=== PATIENT | male | born 1960 | race Caucasian/White ===

== ENCOUNTER 2016-12-11 01:44 | Emergency (ER) | payer MEDICARE ==
[2016-12-11 02:14] VITALS: BP 124/65; PULSE 98; TEMP 98.7; BMI 36.6
--- NOTE | 2016-12-11 02:24 | PDOC ---
History of Present Illness - General History Source: Patient Exam Limitations: No Limitations - History of Present Illness Initial Comments: 12/11/16 02:48 The patient is a 56 year old male with significant past medical history of hypertension, diabetes, asthma, kidney stones, multiple lithotripsies and cystoscopy/ureteroscopy with J-J stent (05/2016) who presents to the ED with 6 days of left-sided buttock pain. Patient reports 8 days ago he had a stent removed from his kidney. 2 days later, as he bent forward to feed his dog, he felt a sudden sharp and pulling sensation on his left lower side back/buttock region. His pain is worsen with movement. He is taking oxycodone for his left low back/buttock pain that was prescribed by his doctor for his stent removal. States he had some numbness/tingling earlier today lasting few seconds and resolved on its own. Denies any radiation of the pain. The patient denies fever, chills, cough, SOB, chest pain, and palpitations. The patient denies abdominal pain, nausea, vomiting, and diarrhea. Allergies: NKDA Social History: No alcohol, tobacco, or drug use reported. Past Surgical History: multiple lithotripsies, right rotator cuff repair, s/p cystoscopy/ureteroscopy with J-J stent (05/2016) PCP: Dr. Ken Rivera <Rosaura Hairston - Last Filed: 12/11/16 04:18> - General History Source: Patient <Saul Mays - Last Filed: 12/11/16 04:27> - General Chief Complaint: Pain Stated Complaint: LEFT HIP PAIN Time Seen by Provider: 12/11/16 02:11 Past History <Rosaura Hairston - Last Filed: 12/11/16 04:18> - Past Medical History Asthma: Yes Cancer: Yes Diabetes: Yes (niddm) Kidney Stones: Yes Suicide Attempt (Hx): No (denies) - Surgical History Orthopedic Surgery: Yes (Torn Right Rotator Cuff, tendon and muscle repair) - Immunization History Immunization Up to Date: Yes - Psycho/Social/Smoking Cessation Hx Anxiety: No Suicidal Ideation: No Smoking Status: No Smoking History: Never smoked Years of Tobacco Use: 0 Have you smoked in the past 12 months: No Number of Cigarettes Smoked Daily: 0 Cigars Per Day: 0 Information on smoking cessation initiated: No Hx Alcohol Use: No Drug/Substance Use Hx: No Substance Use Type: None Hx Substance Use Treatment: No <Saul Mays - Last Filed: 12/11/16 04:27> - Past Medical History Allergies/Adverse Reactions: Allergies Allergy/AdvReac Type Severity Reaction Status Date / Time No Known Allergies Allergy Verified 12/11/16 02:09 Home Medications: Ambulatory Orders Metformin HCl 500 mg PO DAILY 08/13/15 Albuterol 0.083% Nebulizer Nasreen [Ventolin 0.083% Nebulizer Soln -] 1 neb NEB Q4H PRN #10 vial 05/02/16 Albuterol Sulfate Inhaler - [Ventolin HFA Inhaler -] 1 - 2 inh PO PRN PRN #1 inhaler 05/02/16 Ibuprofen 800 mg PO TID #30 tablet 12/11/16 Oxycodone HCl/Acetaminophen [Percocet 5-325 mg Tablet] 1 - 2 tab PO Q6H #20 tablet MDD 4 12/11/16 Review of Systems - Review of Systems Able to Perform ROS?: Yes Comments:: 12/11/16 02:48 CONSTITUTIONAL: Absent: fever, no chills, no fatigue EYES: Absent: visual changes ENT: Absent: ear pain, no sore throat CARDIOVASCULAR: Absent: chest pain, no palpitations RESPIRATORY: Absent: cough, no SOB GI: Absent: abdominal pain, no nausea, no vomiting, no constipation, no diarrhea GENITOURINARY: Absent: dysuria, no frequency, no hematuria MUSCULOSKELETAL: +left low back/buttock pain Absent: no arthralgia, no myalgia SKIN: Absent: rash NEURO: Absent: headache <Rosaura Hairston - Last Filed: 12/11/16 04:18> *Physical Exam - Vital Signs Last Vital Signs Temp Pulse Resp BP Pulse Ox 98.7 F 98 H 20 124/65 97 12/11/16 02:09 12/11/16 02:09 12/11/16 02:09 12/11/16 02:09 12/11/16 02:09 - Physical Exam Comments: 12/11/16 02:48 GENERAL: Well-appearing, well-nourished. No apparent distress. HEENT: Normocephalic, atraumatic. PERRL, EOM intact. CARDIOVASCULAR: Normal S1, S2. Regular rate and rhythm. PULMONARY: Clear to auscultation bilaterally. ABDOMEN: Soft, non-distended, non-tender. EXTREMITIES: Normal ROM in all four extremities. No gross deformities. MUSCULOSKELETAL: Left sided inferior lateral back tenderness with radiation upon palpation. Increase pain with extension of lower extremities bilaterally. 5/5 muscle strength. No loss of sensation SKIN: Warm, dry. No rash NEUROLOGICAL: No focal neurological deficits. <Rosaura Hairston - Last Filed: 12/11/16 04:18> - Vital Signs Last Vital Signs Temp Pulse Resp BP Pulse Ox 98.7 F 98 H 20 124/65 97 12/11/16 02:09 12/11/16 02:09 12/11/16 02:09 12/11/16 02:09 12/11/16 02:09 <Saul Mays - Last Filed: 12/11/16 04:27> ED Treatment Course - RADIOLOGY Radiograph Interpretation: 12/11/16 04:18 EXAM: CT abdomen and pelvis without contrast Reviewed by Imaging prep person: FINDINGS: Negative for right or left urinary tract stone or obstruction. No bowel obstruction free air or free fluid. Normal appendix visualized. Negative for colitis or diverticulitis Liver cyst. Mildly fatty liver. Normal spleen. Normal pancreas. Normal gallbladder. Normal adrenal glands. No acute abnormalities are identified. EXAM: CT lumbar spine without contrast Reviewed by Imaging prep person: FINDINGS: Evaluation for herniated discs is quite limited due to image degradation from the large body habitus.. Diagnostic sensitivity for herniated disc is limited. MRI would be more sensitive. There is some disc bulging at L4-5. The lumbar vertebrae are normally aligned. No fracture or destructive bone lesion. No stenosis of the bony lumbar canal. - Medications Given in the ED: ED Medications Discontinued Medications Generic Name Dose Route Start Last Admin Trade Name Freq PRN Reason Stop Dose Admin Ketorolac Tromethamine 60 mg 12/11/16 02:36 12/11/16 02:35 Toradol Injection - IM 12/11/16 02:37 60 mg ONCE ONE Administration <Rosaura Hairston - Last Filed: 12/11/16 04:18> Medical Decision Making - Medical Decision Making 12/11/16 04:26 Dr. Mays: The scribe's documentation has been prepared under my direction and personally reviewed by me in its entirery. I confirm that the note above accurately reflects all work, treatment, procedures, and medical decision making performed by me. <Saul Mays - Last Filed: 12/11/16 04:27> *DC/Admit/Observation/Transfer - Attestations Scribe Attestion: 12/11/16 02:48 Documentation prepared by Rosaura Hairston, acting as biomedical equipment tech for Saul Mays MD. <Rosaura Hairston - Last Filed: 12/11/16 04:18> - Discharge Dispostion Admit: No <Saul Mays - Last Filed: 12/11/16 04:27> Diagnosis at time of Disposition: Musculoskeletal back pain - Discharge Dispostion Disposition: HOME Condition at time of disposition: Improved - Prescriptions Prescriptions: Ibuprofen 800 mg PO TID #30 tablet Oxycodone HCl/Acetaminophen [Percocet 5-325 mg Tablet] 1 - 2 tab PO Q6H #20 tablet MDD 4 - Referrals Referrals: Ken Rivera MD [Primary Care Provider] - - Patient Instructions Printed Discharge Instructions: DI for Musculoskeletal Pain Additional Instructions: take medication as directed. Follow up with your doctor if symptoms hav e become worse
[2016-12-11] MEDS ORDERED: KETOROLAC TROMETHAMINE 60 MG/2 ML VIAL IM ONE (02:36)
[2016-12-11] MEDS ORDERED: KETOROLAC TROMETHAMINE 60 MG/2 ML VIAL ONE (02:37)
[2016-12-11 03:29] LABS: URINE APPEARANCE CLEAR; URINE BILIRUBIN NEGATIVE (NEGATIVE); URINE BLOOD NEGATIVE (NEGATIVE); URINE COLOR LTYELLOW; URINE GLUCOSE (UA) NEGATIVE (NEGATIVE); URINE KETONE NEGATIVE (NEGATIVE); URINE LEUK ESTERASE NEGATIVE (NEGATIVE); URINE NITRITE NEGATIVE (NEGATIVE); URINE PROTEIN NEGATIVE (NEGATIVE); URINE UROBILINOGEN NEGATIVE E.U./dl (0.2-1.0)
== END 2016-12-11 04:45 | disposition home or self-care (01) ==
LOC: JER 01:44
PROC: 3E0233Z Introduction of Anti-inflammatory into Muscle, Percutaneous Approach (ICD-10-PCS; principal; 2016-12-11)
DX: M54.5 Low back pain (principal); I10 Essential (primary) hypertension; E11.9 Type 2 diabetes mellitus without complications; Z79.84 Long term (current) use of oral hypoglycemic drugs; Z87.442 Personal history of urinary calculi
CPT/HCPCS: 72131-TC; 74176; 81003; 87086; 99281-25

== ENCOUNTER 2017-10-30 22:35 | Inpatient (IN) | payer OTHER ==
--- NOTE | 2017-10-30 23:20 | PDOC ---
History of Present Illness - General Chief Complaint: Pain Stated Complaint: HIGH BP/NAUSEA Time Seen by Provider: 10/30/17 22:55 - History of Present Illness Initial Comments: 10/30/17 23:40 The patient is a 57 year old male with a history of hypertension, diabetes, asthma, kidney stones, multiple lithotripsies and cystoscopy/ureteroscopy with J -J stent (05/2016) who presents for evaluation of left flank pain and pain with urination. The patient reports a 3 day history of worsening sharp intermittent left flank pain with radiation into his left groin. He also notes burning on urination throughout this period of time prompting his presentation to the ED for evaluation. He denies fevers, chills, SOB, chest pain, nausea, abdominal pain, or changes with bowel movements. Past History - Past Medical History Allergies/Adverse Reactions: Allergies Allergy/AdvReac Type Severity Reaction Status Date / Time No Known Allergies Allergy Verified 10/30/17 22:42 Home Medications: Ambulatory Orders Metformin HCl 1,000 mg PO DAILY 08/13/15 Albuterol 0.083% Nebulizer Nasreen [Ventolin 0.083% Nebulizer Soln -] 1 neb NEB Q4H PRN #10 vial 05/02/16 Albuterol Sulfate Inhaler - [Ventolin HFA Inhaler -] 1 - 2 inh PO PRN PRN #1 inhaler 05/02/16 Fluticasone/Salmeterol [Advair 250-50 Diskus] 1 unit IN DAILY 12/11/16 Potassium Citrate [Potassium Citrate ER] 10 meq PO BID 12/11/16 Pregabalin [Lyrica] 100 mg PO BID 12/11/16 Tamsulosin HCl [Flomax] 0.4 mg PO DAILY 12/11/16 Albuterol 0.083% Nebulizer Nasreen [Ventolin 0.083% Nebulizer Soln -] 1 neb NEB Q4H #90 vial 07/10/17 Azithromycin 500 mg PO DAILY #1 tablet 07/10/17 Azithromycin [Zithromax 250mg Tablets -] 250 mg PO DAILY #4 tab 07/10/17 Ibuprofen 800 mg PO TID PRN 07/10/17 Prednisone [Prednisone 50 MG TABLETS] 50 mg PO DAILY #3 tablet 07/10/17 Asthma: Yes Cancer: Yes COPD: No Diabetes: Yes (niddm) Disorders: Yes (BPH) Kidney Stones: Yes - Surgical History Orthopedic Surgery: Yes (Torn Right Rotator Cuff, tendon and muscle repair) - Immunization History Immunization Up to Date: Yes - Suicide/Smoking/Psychosocial Hx Smoking Status: No Smoking History: Never smoked Years of Tobacco Use: 0 Have you smoked in the past 12 months: No Number of Cigarettes Smoked Daily: 0 Cigars Per Day: 0 Information on smoking cessation initiated: No Hx Alcohol Use: No Drug/Substance Use Hx: No Substance Use Type: None Hx Substance Use Treatment: No Review of Systems - Review of Systems Comments:: 10/30/17 23:42 Constitutional: No fevers, chills, fatigue, malaise HEENT: No Rhinorrhea, nasal congestion, visual changes Cardiovascular: No chest pain, syncope, palpitations, lightheadedness Respiratory: No Cough, SOB, Hemoptysis, Gastrointestinal: No Abdominal pain, Nausea, Vomiting, Constipation, Diarrhea, Melena Genitourinary: Dysuria, Flank pain No Frequency, Urgency, Hesitancy, Hematuria, Musculoskeletal: No Myalgia, arthralgia Skin: No rashes, itching, bruising, pallor Neurologic: No Headache, Dizziness, Numbness, Weakness, or Tingling Psychiatric: No Hallucinations. No SI or HI *Physical Exam - Vital Signs Last Vital Signs Temp Pulse Resp BP Pulse Ox 97.5 F L 106 H 20 129/87 97 10/30/17 22:43 10/30/17 22:43 10/30/17 22:43 10/30/17 22:43 10/30/17 22:43 - Physical Exam Comments: 10/30/17 23:42 General Appearance: Nourished. No Apparent Distress HEENT: No Pharyngeal Erythema, Tonsillar Exudate, Tonsillar Erythema Neck: No Cervical Lymphadenopathy Respiratory/Chest: Lungs Clear, Normal Breath Sounds. No Crackles, Rales, Rhonchi, Wheezing Cardiovascular: Regular Rhythm, Regular Rate. No Murmur, Gallops, Rubs Gastrointestinal/Abdominal: Normal Bowel Sounds, Soft. No Guarding, Rebound, Tenderness Musculoskeletal: Mild Left CVA Tenderness. No R CVA Tenderness Extremity: Normal Capillary Refill Integumentary: Normal Color, Dry, Warm Neurologic: Fully Oriented, Alert, Normal Mood/Affect, Normal Response, ED Treatment Course - LABORATORY CBC & Chemistry Diagram: 10/31/17 00:26 10/31/17 00:26 Medical Decision Making - Medical Decision Making 10/30/17 23:43 The patient is a 57 year old male with a history of hypertension, diabetes, asthma, kidney stones, multiple lithotripsies and cystoscopy/ureteroscopy with J -J stent (05/2016) who presents for evaluation of left flank pain and pain with urination. Differential includes but is not limited to: Kidney stones, UTI, pyelonephritis, infectious, metabolic derangement. Given the patient's recurrent kidney stones and history, it is possible his symptoms are due to a UTI or Kidney stone. We will obtain a cbc, cmp, ua, urine culture to evaluate further. We will continue to monitor and reassess. 10/31/17 04:45 CBC demonstrates a wbc elevation. CMP is unremarkable and UA demonstrates RBC and WBC with a positive leuk esterase. We obtain a spiral CT which demonstrated multiple non-obstruction stones as preliminarily read by the control operator flow coat radiologist. We believe he requires admission for further management given his UA is consistent with a UTI and his kidney stones. We will treat with rocephin here in the ED. We discussed the case with the hospitalist team who accepted the patient for admission. *DC/Admit/Observation/Transfer Diagnosis at time of Disposition: Renal calculus, left UTI (urinary tract infection) Qualifiers: Urinary tract infection type: site unspecified Hematuria presence: without hematuria Qualified Code(s): N39.0 - Urinary tract infection, site not specified - Discharge Dispostion Condition at time of disposition: Stable Admit: Yes - Referrals Referrals: Omar Rivera [Primary Care Provider] - - Patient Instructions - Post Discharge Activity
[2017-10-30] MEDS ORDERED: KETOROLAC TROMETHAMINE 30 MG/1 ML VIAL IVPUSH ONE (23:52)
[2017-10-31] MEDS ORDERED: KETOROLAC TROMETHAMINE 30 MG/1 ML VIAL ONE (00:11)
[2017-10-31 00:40] LABS: BASO % 0.7 % (0-2.0); EOS % 2.5 % (0-4.5); HEMATOCRIT 48.7 % (35.4-49); HEMOGLOBIN 16.2 GM/dL (11.7-16.9); LYMPH % 24.9 % (8-40); MCH 28.6 pg (25.7-33.7); MCHC 33.2 g/dl (32.0-35.9); MEAN CELL VOLUME 86.1 fl (80-96); MEAN PLT VOLUME 7.8 fl (7.5-11.1); MONO % 6.8 % (3.8-10.2); NEUT % 65.1 % (42.8-82.8); PLATELET COUNT 324 K/MM3 (134-434); RBC 5.65 M/mm3 (4.00-5.60); RDW 13.6 % (11.9-15.9); WHITE BLOOD COUNT 14.4 K/mm3 (4.0-10.0)
[2017-10-31 00:41] LABS: URINE APPEARANCE CLEAR; URINE BILIRUBIN NEGATIVE (NEGATIVE); URINE BLOOD 2+ (NEGATIVE); URINE COLOR LTYELLOW; URINE GLUCOSE (UA) 1+ (NEGATIVE); URINE KETONE NEGATIVE (NEGATIVE); URINE NITRITE NEGATIVE (NEGATIVE); URINE PROTEIN NEGATIVE (NEGATIVE); URINE UROBILINOGEN NEGATIVE mg/dL (0.2-1.0)
[2017-10-31 00:45] LABS: URINE LEUK ESTERASE 1+ (NEGATIVE)
[2017-10-31 00:47] LABS: EPI CELLS RARE /HPF (FEW); URINE MUCUS RARE
--- NOTE | 2017-10-31 00:51 | PDOC ---
Attending Attestation - Resident Resident Name: Vitaly Milton - ED Attending Attestation I have performed the following: I have examined & evaluated the patient, The case was reviewed & discussed with the resident, I agree w/resident's findings & plan - HPI HPI: 10/31/17 00:51 The patient is a 57 year old male, with a significant past medical history of asthma, diabetes, BPH, CKD, kidney stones(multiple Lithotripsy and cystoscopy/ ureteroscopy with J-J stent[05/2016]), who presents to the emergency department with left sided flank pain with radiation into his left groin for the past 3 days. The patient reports associated burning and pain with urination, but denies any hematuria, frequency, or urgency. He denies any recent fever or chills. He denies any nausea, vomiting, diarrhea, or constipation. He denies any recent travel or sick contacts. Allergies: NKDA Past Surgical History: Right rotator cuff repair. Social History: Non smoker. No ETOH or recreational drug use. PCP: Dr. Rivera - Medical Decision Making 10/31/17 00:51 Documentation prepared by Ruthie Da Silva, acting as medical technologist chief for Chantal Clarke MD. <Ruthie Da Silva - Last Filed: 10/31/17 00:51> - Physicial Exam PE: 11/01/17 06:01 Agree with resident exam - Medical Decision Making 10/31/17 03:39 Patient Name: RICHA PHILIPPE THIS IS A PRELIMINARY REPORT FROM [facility] [facility] DATE OF SERVICE: 2017-10-31 02:37:14 IMAGES: 471 EXAM: CT abdomen without contrast and CT pelvis without contrast HISTORY: 57-year-old male evaluate for hydronephrosis or pyelonephritis. COMPARISON: None. FINDINGS: Basilar atelectasis. Right anterior liver 3 cm hypodense lesion on axial image 27 most likely due to a benign liver cyst. Mild hepatomegaly. Lack of intravenous contrast limits this exam. Noncontrast evaluation gallbladder pancreas spleen adrenal glands appear unremarkable. Left kidney 1-2 mm nonobstructing nephrolithiasis. Right kidney and a cortical nonspecific 1.7 x 1.7 x 1.7 cm hyperdense renal cortical mass on axial image 60 coronal image 69 and sagittal image 31 most likely due to proteinaceous cyst and a mass cannot be excluded. Calcified granulomas in the prostate. Moderate bladder distention. Lack of oral contrast limits this exam. Noncontrast evaluation stomach small bowel and appendix appear unremarkable. Diverticulosis without diverticulitis. No free air. No free fluid. No abscess. Flowing thoracic osteophytes in lumbar osteophytes. Moderate degenerative disc disease and degenerative joint disease of the facets in the lower lumbar spine. Bone bridging across the sacroiliac joints. Chronic well -corticated fracture of the left anterolateral acetabular labrum. Subcutaneous adipose tissues incompletely included within the [id number]. IMPRESSION: Right kidney and a cortical nonspecific 1.7 cm hyperdense renal cortical mass most likely due to proteinaceous cyst and a mass cannot be excluded. If clinically indicated a followup outpatient MRI of the kidneys with contrast may be needed. Left kidney nonobstructing nephrolithiasis. Mild hepatomegaly with a right anterior liver 3 cm hypodense lesion most likely due to a benign liver cyst. Diverticulosis without diverticulitis. THIS DOCUMENT HAS BEEN ELECTRONICALLY SIGNED 11/01/17 05:59 Pt will be admitted for infected kidney stones. He will require IV abx. <Chantal Clarke - Last Filed: 11/01/17 06:01>
[2017-10-31 01:11] LABS: ALBUMIN 3.5 g/dl (3.4-5.0); ALK PHOS 102 U/L (45-117); ANION GAP 10 (8-16); BILIRUBIN,TOTAL 0.5 mg/dL (0.2-1.0); BLOOD UREA NITROGEN 14 mg/dL (7-18); CALCIUM 9.2 mg/dL (8.5-10.1); CHLORIDE 99 mmol/L (98-107); CO2 29 mmol/L (21-32); CREATININE 1.1 mg/dL (0.7-1.3); GLUCOSE,RANDOM 126 mg/dL (74-106); SGOT/AST 18 U/L (15-37); SGPT/ALT 46 U/L (12-78); SODIUM 138 mmol/L (136-145); TOT PROT 7.7 g/dl (6.4-8.2)
[2017-10-31] MEDS ORDERED: CEFTRIAXONE 1 GM in DEXTROSE 5%-WATER - 50 ML IVPB ONE (03:26)
[2017-10-31] MEDS ORDERED: CEFTRIAXONE 2 GM/100 ML BAG IVPB ONE (04:02)
[2017-10-31] MEDS ORDERED: ACETAMINOPHEN 325 MG TABLET (FP) PO PRN (05:30)
[2017-10-31] MEDS ORDERED: ALBUTEROL SO4 18 GM HFA INHALER IH PRN ×2 (05:38→12:58)
--- NOTE | 2017-10-31 05:43 | PN ---
Teaching Attending Note Name of Resident: Zee Barrera ATTENDING PHYSICIAN STATEMENT I saw and evaluated the patient. I reviewed the resident's note and discussed the case with the resident. I agree with the resident's findings and plan as documented. SUBJECTIVE: OBJECTIVE: ASSESSMENT AND PLAN: 57 y/o male patient with history of BPH s/p surgical intervention presented to the hospital for urinary hesitancy, burning sensation, flank pain, and hematuria this is s/p recent prostate procedure. patient has Left sided CVA tenderness, stated that he is having chills without any documented fever. he also stated that his urination frequency has increased more than before. plan patient is complicated UTI - admit to obs start the patient on ceftriaxone 500mg IV consult urology tamsulosin 0.4mg IVF hydration ultrasound of the kidney
[2017-10-31] MEDS: SODIUM CHLORIDE 1,000 ML IV SCH (05:45)
--- NOTE | 2017-10-31 05:47 | HP ---
CHIEF COMPLAINT: back pain PCP: Dr. Rivera HISTORY OF PRESENT ILLNESS: This is a 57 year old male with a past medical history of BPH; s/p J-J stent; s/ p recent prostate surgery (procedure unknown) at [facility], who presents with left sided back pain, dysuria, decreased urinary output, abdominal distention for the past two days. Sx was two weeks ago. He denies fever, chills, n, v, hematuria. ER course was notable for: (1)Leuckocytosis; tachycadia; (2)spiral CT; impression :Right kidney and a cortical nonspecific 1.7 cm hyperdense renal cortical mass most likely due to proteinaceous cyst and a mass cannot be excluded. If clinically indicated a followup outpatient MRI of the kidneys with contrast may be needed. Left kidney nonobstructing nephrolithiasis. Recent Travel: no PAST MEDICAL HISTORY: asthma, DM< bph PAST SURGICAL HISTORY: prostate, shoulder, cataracts Social History: Smoking:no Alcohol:no Drugs: no Family History: Allergies No Known Allergies Allergy (Verified 10/30/17 22:42) HOME MEDICATIONS: Home Medications Medication Instructions Recorded Metformin HCl 1,000 mg PO DAILY 08/13/15 Albuterol 0.083% Nebulizer Nasreen 1 neb NEB Q4H PRN #10 vial 05/02/16 [Ventolin 0.083% Nebulizer Soln -] Albuterol Sulfate Inhaler - 1 - 2 inh PO PRN PRN #1 inhaler 05/02/16 [Ventolin HFA Inhaler -] Fluticasone/Salmeterol [Advair 1 unit IN DAILY 12/11/16 250-50 Diskus] Potassium Citrate [Potassium 10 meq PO BID 12/11/16 Citrate ER] Pregabalin [Lyrica] 100 mg PO BID 12/11/16 Tamsulosin HCl [Flomax] 0.4 mg PO DAILY 12/11/16 Albuterol 0.083% Nebulizer Nasreen 1 neb NEB Q4H #90 vial 07/10/17 [Ventolin 0.083% Nebulizer Soln -] Azithromycin 500 mg PO DAILY #1 tablet 07/10/17 Azithromycin [Zithromax 250mg 250 mg PO DAILY #4 tab 07/10/17 Tablets -] Ibuprofen 800 mg PO TID PRN 07/10/17 Prednisone [Prednisone 50 MG 50 mg PO DAILY #3 tablet 07/10/17 TABLETS] REVIEW OF SYSTEMS as above PHYSICAL EXAMINATION Vital Signs - 24 hr 10/30/17 10/31/17 22:43 02:35 Temperature 97.5 F L 98.7 F Pulse Rate 106 H Pulse Rate [ 104 H Apical] Respiratory 20 18 Rate Blood Pressure 129/87 Blood Pressure 126/80 [Left Arm] O2 Sat by Pulse 97 99 Oximetry (%) GENERAL: Awake, alert, and fully oriented, in no acute distress. LUNGS: Breath sounds at bases, clear to auscultation bilaterally. No wheezes, and no crackles. No accessory muscle use. HEART: Regular rate and rhythm, normal S1 and S2 without murmur, rub or gallop. ABDOMEN: Soft, distended, tender to palpation LLQ, normoactive bowel sounds, no guarding, no rebound, no masses. No hepatomegaly or splenomegaly. MUSCULOSKELETAL: Normal range of motion at all joints. No bony deformities or tenderness. + left CVA tenderness. UPPER EXTREMITIES: 2+ pulses, warm, well-perfused. No cyanosis. No clubbing. No peripheral edema. LOWER EXTREMITIES: 2+ pulses, warm, well-perfused. No calf tenderness. No peripheral edema. NEUROLOGICAL: aaox3 PSYCHIATRIC: Cooperative. Good eye contact. Appropriate mood and affect. SKIN: Warm, dry, normal turgor, no rashes or lesions noted, normal capillary refill. Laboratory Results - last 24 hr 10/31/17 10/31/17 10/31/17 00:26 00:26 00:26 WBC 14.4 H D RBC 5.65 H Hgb 16.2 Hct 48.7 MCV 86.1 MCH 28.6 MCHC 33.2 RDW 13.6 Plt Count 324 MPV 7.8 Neutrophils % 65.1 Lymphocytes % 24.9 Monocytes % 6.8 Eosinophils % 2.5 Basophils % 0.7 Sodium 138 Potassium 4.0 Chloride 99 Carbon Dioxide 29 Anion Gap 10 BUN 14 D Creatinine 1.1 Creat Clearance w eGFR > 60 Random Glucose 126 H Calcium 9.2 Total Bilirubin 0.5 AST 18 ALT 46 D Alkaline Phosphatase 102 Total Protein 7.7 D Albumin 3.5 D Urine Color Ltyellow Urine Appearance Clear Urine pH 5.0 Ur Specific Mobile 1.012 Urine Protein Negative Urine Glucose (UA) 1+ H Urine Ketones Negative Urine Blood 2+ H Urine Nitrite Negative Urine Bilirubin Negative Urine Urobilinogen Negative Ur Leukocyte Esterase 1+ H Urine WBC (Auto) 12 Urine RBC (Auto) 59 Ur Epithelial Cells Rare Urine Mucus Rare ASSESSMENT/PLAN: This is a 57 year old male with w history of BPH s/p prostate sx; who presents with back pain, dysuria, +cva tenderness admitted for urinary tract infection. #UTI/prostatitis: -IVF-I/O IV antibiotics ceftriaxone -bladder scan for urinary retention -flomax -urology consult #asthma: controlled cont inhaled broncodilators #DM: insulin ss; bgm FEN: NS x1bag Electrolytes wnl Diet diabetic VTE : scds Disposition: obs Case discussed with attending Dr. Nelia Barrera [id number] Problem List - Problem (1) Renal calculus, left Code(s): N20.0 - CALCULUS OF KIDNEY (2) UTI (urinary tract infection) Code(s): N39.0 - URINARY TRACT INFECTION, SITE NOT SPECIFIED Qualifiers: Urinary tract infection type: site unspecified Hematuria presence: without hematuria Qualified Code(s): N39.0 - Urinary tract infection, site not specified (3) Abdominal pain Code(s): R10.9 - UNSPECIFIED ABDOMINAL PAIN Visit type - Emergency Visit Emergency Visit: Yes ED Registration Date: 10/31/17 Care time: The patient presented to the Emergency Department on the above date and was hospitalized for further evaluation of their emergent condition. - New Patient This patient is new to me today: Yes Date on this admission: 10/31/17 - Critical Care Critical Care patient: No Hospitalist Screening - Colonoscopy Questionnaire Colonoscopy Questionnaire: Colonoscopy Questionnaire - Patient: 50 - 75 years old and never had a screening colonoscopy: Yes History of colon or rectal polyps, or CA: No History of IBD, Crohn's disease or UC: No History of abdominal radiation therapy as a child: No - Relative: 1 with colon or rectal CA, or polyps at age 60 or younger: No Colon or rectal CA diagnosed at age 45 or younger: No Multiple relatives with colon or rectal CA: No - Outcome: Screening Result: Positive Screen
[2017-10-31] MEDS ORDERED: HEPARIN NA (PORCINE) 5,000 UNITS/ML 1ML VIAL SQ SCH (06:00)
[2017-10-31 07:18] VITALS: BMI 35.5
[2017-10-31] MEDS: INSULIN SLIDING SCALE (NOVOLOG) 1 VIAL SQ SCH ×4 (07:30→22:05)
[2017-10-31] MEDS ORDERED: KETOROLAC TROMETHAMINE 30 MG/1 ML VIAL IVPUSH ONE ×2 (08:42→21:41)
[2017-10-31] MEDS: TAMSULOSIN HCL 0.4 MG CAP.ER.24H (FP) PO SCH (08:48)
[2017-10-31] MEDS ORDERED: PATIENT'S OWN MEDICATION (NON-FORMULARY) (Potassium Citrate [Potassium Citrate Er] 10 MEQ) PO SCH (10:00)
[2017-10-31] MEDS ORDERED: PREGABALIN 100 MG CAPSULE PO SCH (10:00)
[2017-10-31] MEDS ORDERED: PREGABALIN 50 MG CAPSULE PO SCH (10:03)
[2017-10-31] MEDS: PREGABALIN 50 MG CAPSULE PO SCH ×2 (10:39→22:04)
[2017-10-31] MEDS: BUDESONIDE/FORMETEROL FUMARATE 80/4.5 mcg INHALER IH SCH ×2 (10:40→22:03)
--- NOTE | 2017-10-31 14:31 | HOSP ---
Subjective - Review of Symptoms Subjective: evaluated pt at bedside with present c/o urinary frequency and burning. states he has had this for 3 months since his procedure. Initially had hematuria which resolved. denies CP, SOB, fever, chills, N/V/C/D Current Medications Generic Name Dose Route Start Last Admin Trade Name Freq PRN Reason Stop Dose Admin Acetaminophen 650 mg 10/31/17 05:30 Tylenol - PO Q4H PRN BACK PAIN Albuterol Sulfate 1 amp 10/31/17 05:38 Ventolin 0.083% Nebulizer Soln - NEB Q4H PRN Wheezing Albuterol Sulfate 1 - 2 puff 10/31/17 12:58 Ventolin Hfa Inhaler - IH Q6H PRN ASTHMA Budesonide/Formoterol Fumarate 2 puff 10/31/17 10:00 10/31/17 10:40 Symbicort 80/4.5mcg - IH 2 puff BID ADILSON Administration Sodium Chloride 1,000 mls @ 125 mls/hr 10/31/17 05:30 10/31/17 05:45 Normal Saline - IV 125 mls/hr ASDIR ADILSON Administration CEFTRIAXONE 1 G/50 ML PREMIX 50 mls @ 100 mls/hr 10/31/17 22:00 Ceftriaxone 1 Gm-D5w Bag IVPB DAILY ADILSON Insulin Aspart 1 vial 10/31/17 07:00 10/31/17 12:01 Novolog Vial Sliding Scale - SQ 2 units ACHS ADILSON Administration Protocol Pregabalin 100 mg 10/31/17 10:45 10/31/17 10:39 Lyrica - PO 100 mg BID ADILSON Administration Tamsulosin HCl 0.4 mg 10/31/17 08:30 10/31/17 08:48 Flomax - PO 0.4 mg DAILY@0830 ADILSON Administration Last Vital Signs Temp Pulse Resp BP Pulse Ox 98.1 F 92 H 19 129/78 98 10/31/17 13:00 10/31/17 13:00 10/31/17 13:47 10/31/17 13:00 10/31/17 13:47 General NAD CV S1 S2 RRR no murmur/rub/gallop Lungs CTA B/L no wheezing/ralesr/honchi Abdomen soft NT/ND +L CVA tenderness Extremtieis no pedal edema CBCD WBC 14.4 K/mm3 (4.0-10.0) H D 10/31/17 00:26 RBC 5.65 M/mm3 (4.00-5.60) H 10/31/17 00: Hgb 16.2 GM/dL (11.7-16.9) 10/31/17: Hct 48.7 % (35.4-49) 10/31/17: MCV 86.1 fl (80-96) 10/31/17: MCHC 33.2 g/dl (32.0-35.9) 10/31/17: RDW 13.6 % (11.9-15.9) 10/31/17: Plt Count 324 K/MM3 (134-434) 10/31/17: MPV 7.8 fl (7.5-11.1) 10/31/17: CMP Sodium 138 mmol/L (136-145) 10/31/17: Potassium 4.0 mmol/L (3.5-5.1) 10/31/17: Chloride 99 mmol/L (98-107) 10/31/17: Carbon Dioxide 29 mmol/L (21-32) 10/31/17: Anion Gap 10 (8-16) 10/31/17: BUN 14 mg/dL (7-18) D 10/31/17 00: Creatinine 1.1 mg/dL (0.7-1.3) 10/31/17 00: Creat Clearance w eGFR > 60 (>60) 10/31/17: Calcium 9.2 mg/dL (8.5-10.1) 10/31/17 00: Total Bilirubin 0.5 mg/dL (0.2-1.0) 10/31/17: AST 18 U/L (15-37) 10/31/17: ALT 46 U/L (12-78) D 10/31/17 00: Alkaline Phosphatase 102 U/L (45-117) 10/31/17 00: Total Protein 7.7 g/dl (6.4-8.2) D 10/31/17 00: Albumin 3.5 g/dl (3.4-5.0) D 10/31/17 00:26 A/P 57yo M with PMH BPH s/p prostate procedure presenting with urinary frequency and dysuria 1. UTI- after prostate procedure. afebrile. CT done showing no pyelo or hydro. small multiple stones which pt states hes had for some time. cont ceftriaxone day 2. Consult urology. cont flomax/pain control. f/u Cx. Physical Examination Vital Signs: Vital Signs Temperature 98.1 F 10/31/17 13:00 Pulse Rate 92 H 10/31/17 13:00 Respiratory Rate 19 10/31/17 13:47 Blood Pressure 129/78 10/31/17 13:00 O2 Sat by Pulse Oximetry (%) 98 10/31/17 13:47 Labs: CBC, BMP 10/31/17 00:26 10/31/17 00:26
[2017-10-31] MEDS: ALBUTEROL SO4 0.083% IH SOL 2.5 MG/3 ML VIAL.NEB. NEB PRN (18:39)
[2017-10-31] MEDS ORDERED: PT OWN MED DRAWER 7, Y5N ONE (21:32)
[2017-10-31] MEDS ORDERED: INSULIN (NOVOLOG) ASPART 100 UNITS/ML 10ML VIAL ONE (21:39)
[2017-10-31] MEDS: CEFTRIAXONE 1 G/50 ML PREMIX 50 ML IVPB SCH (22:04)
[2017-11-01] MEDS: SODIUM CHLORIDE 1,000 ML IV SCH ×2 (03:38→12:00)
[2017-11-01] MEDS: INSULIN SLIDING SCALE (NOVOLOG) 1 VIAL SQ SCH ×4 (06:38→21:21)
[2017-11-01 06:41] LABS: BASO % 0.9 % (0-2.0); EOS % 2.4 % (0-4.5); HEMATOCRIT 44.3 % (35.4-49); HEMOGLOBIN 14.5 GM/dL (11.7-16.9); LYMPH % 19.5 % (8-40); MCH 28.7 pg (25.7-33.7); MCHC 32.8 g/dl (32.0-35.9); MEAN CELL VOLUME 87.4 fl (80-96); MEAN PLT VOLUME 8.5 fl (7.5-11.1); MONO % 5.1 % (3.8-10.2); NEUT % 72.1 % (42.8-82.8); PLATELET COUNT 223 K/MM3 (134-434); RBC 5.07 M/mm3 (4.00-5.60); RDW 13.8 % (11.9-15.9); WHITE BLOOD COUNT 11.9 K/mm3 (4.0-10.0)
[2017-11-01 07:06] LABS: ANION GAP 10 (8-16); BLOOD UREA NITROGEN 21 mg/dL (7-18); CALCIUM 8.4 mg/dL (8.5-10.1); CHLORIDE 106 mmol/L (98-107); CO2 25 mmol/L (21-32); GLUCOSE,RANDOM 148 mg/dL (74-106); POTASSIUM 4.1 mmol/L (3.5-5.1); SODIUM 141 mmol/L (136-145)
[2017-11-01] MEDS ORDERED: PT OWN MED DRAWER 7, Y5N ONE ×2 (09:07→21:04)
[2017-11-01] MEDS: TAMSULOSIN HCL 0.4 MG CAP.ER.24H (FP) PO SCH (09:19)
[2017-11-01] MEDS: BUDESONIDE/FORMETEROL FUMARATE 80/4.5 mcg INHALER IH SCH ×2 (09:20→21:18)
[2017-11-01] MEDS: PREGABALIN 50 MG CAPSULE PO SCH ×2 (09:20→21:18)
[2017-11-01] MEDS ORDERED: KETOROLAC TROMETHAMINE 30 MG/1 ML VIAL IVPUSH SCH (10:00)
[2017-11-01] MEDS: KETOROLAC TROMETHAMINE 30 MG/1 ML VIAL IVPUSH PRN ×2 (10:21→21:18)
[2017-11-01] MEDS ORDERED: morphine CARPU-JECT 4 MG/1 ML DISP.SYRIN IVPUSH ONE ×2 (12:06)
[2017-11-01] MEDS ORDERED: morphine SULFATE 4 MG/ML VIAL ONE (12:25)
--- NOTE | 2017-11-01 13:54 | PN ---
Physical Exam: SUBJECTIVE: Patient seen and examined at bedside. No overnight events. Continues to have left sided flank pain. He says he feels better than yesterday. Denies CP,TYSON,SOB, abdominal pain, N/V. OBJECTIVE: Vital Signs Period Temp Pulse Resp BP Sys/Sue Pulse Ox Last 24 Hr 96.9 F-98.7 F 79-95 18-20 121-143/76-80 96-96 GENERAL: AAOx3, mild distress ENT: moist mucous membranes. NECK: supple, no jvd LUNGS: CTAB, No wheezing or rales. HEART: RRR, NL S1S2, No M/G/R ABDOMEN: Soft, mild left sided abdominal pain, no hepato or splenomegally appreciated. EXTREMITIES: 2+ pulses, warm, well-perfused, no edema. NEUROLOGICAL:no focal deficits. Laboratory Results - last 24 hr 10/31/17 10/31/17 11/01/17 17:21 20:30 06:15 WBC 11.9 H RBC 5.07 Hgb 14.5 D Hct 44.3 MCV 87.4 MCH 28.7 MCHC 32.8 RDW 13.8 Plt Count 223 D MPV 8.5 Neutrophils % 72.1 Lymphocytes % 19.5 D Monocytes % 5.1 Eosinophils % 2.4 Basophils % 0.9 Sodium Potassium Chloride Carbon Dioxide Anion Gap BUN Creatinine POC Glucometer 159 169 Random Glucose Calcium 11/01/17 11/01/17 11/01/17 06:15 06:37 11:00 WBC RBC Hgb Hct MCV MCH MCHC RDW Plt Count MPV Neutrophils % Lymphocytes % Monocytes % Eosinophils % Basophils % Sodium 141 Potassium 4.1 Chloride 106 Carbon Dioxide 25 Anion Gap 10 BUN 21 H D Creatinine 1.0 POC Glucometer 134 219 Random Glucose 148 H Calcium 8.4 L Active Medications Generic Name Dose Route Start Last Admin Trade Name Freq PRN Reason Stop Dose Admin Acetaminophen 650 mg 10/31/17 05:30 Tylenol - PO Q4H PRN BACK PAIN Albuterol Sulfate 1 amp 10/31/17 05:38 10/31/17 18:39 Ventolin 0.083% Nebulizer Soln - NEB 1 amp Q4H PRN Administration Wheezing Albuterol Sulfate 1 - 2 puff 10/31/17 12:58 Ventolin Hfa Inhaler - IH Q6H PRN ASTHMA Budesonide/Formoterol Fumarate 2 puff 10/31/17 10:00 11/01/17 09:20 Symbicort 80/4.5mcg - IH 2 puff BID ADILSON Administration Sodium Chloride 1,000 mls @ 125 mls/hr 10/31/17 05:30 11/01/17 03:38 Normal Saline - IV 125 mls/hr ASDIR ADILSON Administration CEFTRIAXONE 1 G/50 ML PREMIX 50 mls @ 100 mls/hr 10/31/17 22:00 10/31/17 22: 04 Ceftriaxone 1 Gm-D5w Bag IVPB 100 mls/hr DAILY ADILSON Administration Insulin Aspart 1 vial 10/31/17 07:00 11/01/17 11:50 Novolog Vial Sliding Scale - SQ 3 units ACHS ADILSON Administration Protocol Ketorolac Tromethamine 30 mg 11/01/17 10:15 11/01/17 10:21 Toradol Injection - IVPUSH 11/06/17 09:59 30 mg Q8H-IV PRN Administration PAIN LEVEL 6-10 Pregabalin 100 mg 10/31/17 10:45 11/01/17 09:20 Lyrica - PO 100 mg BID ADILSON Administration Tamsulosin HCl 0.4 mg 10/31/17 08:30 11/01/17 09:19 Flomax - PO 0.4 mg DAILY@0830 ADILSON Administration ASSESSMENT/PLAN: 57yo M with PMH BPH s/p prostate procedure presenting with urinary frequency and dysuria admitted for acute UTI and renal stones Problem List - Problems (1) Renal calculus, left Assessment/Plan: multiple small stones which are chronic for him. * IVF with NS @ 125ml/hr * strain urine * Pain control with morphine 2mg IV push Q4h * He will be seen by Dr. Rivera tomorrow to determine need for further interventions. Code(s): N20.0 - CALCULUS OF KIDNEY (2) UTI (urinary tract infection) Assessment/Plan: Complicated UTI. * Continue Ceftriaxone 1gm IV daily. (3) Diabetes Assessment/Plan: Non-insulin dependent diabetes * ADA diet * BGM ACHS * ISS ACHS Visit type - Emergency Visit Emergency Visit: Yes ED Registration Date: 10/31/17 Care time: The patient presented to the Emergency Department on the above date and was hospitalized for further evaluation of their emergent condition. - New Patient This patient is new to me today: Yes Date on this admission: 11/01/17 - Critical Care Critical Care patient: No - Discharge Referral Referred to [facility] No
--- NOTE | 2017-11-01 14:46 | PN ---
Teaching Attending Note Name of Resident: Marcel Higgins ATTENDING PHYSICIAN STATEMENT I saw and evaluated the patient. I reviewed the resident's note and discussed the case with the resident. I agree with the resident's findings and plan as documented. SUBJECTIVE:c/o L flank pain radiating to the groin. not controlled with current pain medications. denies CP, SOB< fever, chills, N/V/C/D OBJECTIVE: Last Vital Signs Temp Pulse Resp BP Pulse Ox 97.6 F 80 13 145/87 96 11/01/17 13:35 11/01/17 13:35 11/01/17 13:35 11/01/17 13:35 11/01/17 09:00 General NAD Lungs CTA B/L no wheezing/ralesr/honchi Abdomen soft NT/ND +L CVA tenderness ASSESSMENT AND PLAN: 57yo M with PMH BPH s/p prostate procedure presenting with urinary frequency and dysuria 1. UTI- after prostate procedure. afebrile. pain not controlled. likely due to nephrolithasis. start morphine prn. cont ceftriaxone day 3. repeat Ucx Consult urology. cont flomax/pain control. f/u Cx. 2. KRISTINE- likely pre-renal. now resolved. on IVF. avoid nephrotoxic agents 3. DM- controlled. cont ISS, BGM 4. DVT ppx- EAM 5. Explained to pt possible d/c home tomorrow pending urology recommendations. verbalized understanding and agreement iwth plan
[2017-11-01] MEDS: CEFTRIAXONE 1 G/50 ML PREMIX 50 ML IVPB SCH (16:03)
[2017-11-01] MEDS: ALBUTEROL SO4 0.083% IH SOL 2.5 MG/3 ML VIAL.NEB. NEB PRN (21:20)
[2017-11-02] MEDS: SODIUM CHLORIDE 1,000 ML IV SCH ×4 (02:38→19:22)
[2017-11-02] MEDS: INSULIN SLIDING SCALE (NOVOLOG) 1 VIAL SQ SCH ×4 (06:11→21:41)
[2017-11-02 07:35] LABS: ANION GAP 6 (8-16); BLOOD UREA NITROGEN 15 mg/dL (7-18); CALCIUM 7.7 mg/dL (8.5-10.1); CHLORIDE 109 mmol/L (98-107); CO2 28 mmol/L (21-32); GLUCOSE,RANDOM 128 mg/dL (74-106); SODIUM 143 mmol/L (136-145)
[2017-11-02] MEDS: KETOROLAC TROMETHAMINE 30 MG/1 ML VIAL IVPUSH PRN (07:37)
[2017-11-02 08:03] LABS: BASO % 0.4 % (0-2.0); EOS % 2.9 % (0-4.5); HEMATOCRIT 42.5 % (35.4-49); HEMOGLOBIN 13.9 GM/dL (11.7-16.9); LYMPH % 20.7 % (8-40); MCH 28.8 pg (25.7-33.7); MCHC 32.7 g/dl (32.0-35.9); MEAN CELL VOLUME 88.2 fl (80-96); MEAN PLT VOLUME 7.9 fl (7.5-11.1); MONO % 5.5 % (3.8-10.2); NEUT % 70.5 % (42.8-82.8); PLATELET COUNT 225 K/MM3 (134-434); RBC 4.82 M/mm3 (4.00-5.60); RDW 13.9 % (11.9-15.9); WHITE BLOOD COUNT 10.5 K/mm3 (4.0-10.0)
[2017-11-02] MEDS ORDERED: PT OWN MED DRAWER 7, Y5N ONE ×3 (08:58→21:52)
[2017-11-02] MEDS: BUDESONIDE/FORMETEROL FUMARATE 80/4.5 mcg INHALER IH SCH ×2 (09:04→21:52)
[2017-11-02] MEDS: TAMSULOSIN HCL 0.4 MG CAP.ER.24H (FP) PO SCH (09:04)
[2017-11-02] MEDS: LISINOPRIL 5 MG TABLET (FP) PO SCH (09:04)
[2017-11-02] MEDS: CEFTRIAXONE 1 G/50 ML PREMIX 50 ML IVPB SCH (09:04)
[2017-11-02] MEDS: PREGABALIN 50 MG CAPSULE PO SCH ×2 (09:04→21:49)
[2017-11-02] MEDS ORDERED: morphine SULFATE 4 MG/ML VIAL IVPUSH ONE (11:03)
--- NOTE | 2017-11-02 13:06 | PN ---
Teaching Attending Note Name of Resident: Av Allred ATTENDING PHYSICIAN STATEMENT I saw and evaluated the patient. I reviewed the resident's note and discussed the case with the resident. I agree with the resident's findings and plan as documented. SUBJECTIVE:c/o severe L flank pain. worse this AM radiating to groin. denies CP , SOB, fever, chills, N/V/C/D OBJECTIVE: Last Vital Signs Temp Pulse Resp BP Pulse Ox 98.4 F 73 18 120/76 98 11/02/17 10:11/02/17 10:11/02/17 10:11/02/17 10:11/02/17 12:00 General NAD Lungs CTA B/L no wheezing/ralesr/honchi Abdomen soft NT/ND +L CVA tenderness ASSESSMENT AND PLAN: 57yo M with PMH BPH s/p prostate procedure presenting with urinary frequency and dysuria 1. UTI- after prostate procedure. afebrile. states pain is controlled with morphine. possible stone is obstructing although not seen on initial imaging. call urology to come nad evaluate. cont ceftriaxone day 4. repeat Ucx negative. Consult urology. cont flomax/pain control. 2. KRISTINE- likely pre-renal. now resolved. on IVF. avoid nephrotoxic agents 3. DM- controlled. cont ISS, BGM 4. HTN- above goal. may be due to pain however above goal in diabetic. will start lisinopril 5. DVT ppx- EAM
[2017-11-02] MEDS ORDERED: MORPHINE SULFATE 10 MG/1 ML *VIAL IVPUSH PRN (13:10)
[2017-11-02] MEDS ORDERED: ACETAMINOPHEN 325 MG TABLET (FP) PO PRN (13:13)
[2017-11-02] MEDS ORDERED: KETOROLAC TROMETHAMINE 30 MG/1 ML VIAL IVPUSH PRN (13:13)
--- NOTE | 2017-11-02 13:59 | PN ---
Physical Exam: SUBJECTIVE: Patient seen and examined No acute events overnight. Pt reports decreased dysuria, but his left back pain is still severe. He denies n/v/d/c, abdominal pain. OBJECTIVE: Vital Signs Period Temp Pulse Resp BP Sys/Sue Pulse Ox Last 24 Hr 97.4 F-98.4 F 73-80 17-18 120-143/76-81 96-98 GENERAL: The patient is awake, alert, and fully oriented, in mild distress. HEENT: NC, AT LUNGS: Breath sounds equal, clear to auscultation bilaterally, no wheezes, no crackles, no accessory muscle use. HEART: Regular rate and rhythm, S1, S2 without murmur, rub or gallop. ABDOMEN: Soft, nontender, nondistended, normoactive bowel sounds, no guarding, no rebound, no hepatosplenomegaly, no masses. Back: + left CVA tenderness EXTREMITIES: 2+ pulses, warm, well-perfused, no edema. NEUROLOGICAL: Cranial nerves II through XII grossly intact. Normal speech, gait not observed. Laboratory Results - last 24 hr 11/01/17 11/01/17 11/02/17 16:32 20:15 06:04 WBC RBC Hgb Hct MCV MCH MCHC RDW Plt Count MPV Neutrophils % Lymphocytes % Monocytes % Eosinophils % Basophils % Sodium Potassium Chloride Carbon Dioxide Anion Gap BUN Creatinine POC Glucometer 150 174 132 Random Glucose Calcium 11/02/17 11/02/17 11/02/17 06:06 06:48 11:17 WBC 10.5 H RBC 4.82 Hgb 13.9 Hct 42.5 MCV 88.2 MCH 28.8 MCHC 32.7 RDW 13.9 Plt Count 225 MPV 7.9 Neutrophils % 70.5 Lymphocytes % 20.7 Monocytes % 5.5 Eosinophils % 2.9 Basophils % 0.4 Sodium 143 Potassium 4.0 Chloride 109 H Carbon Dioxide 28 Anion Gap 6 L BUN 15 D Creatinine 1.0 POC Glucometer 243 Random Glucose 128 H Calcium 7.7 L Active Medications Generic Name Dose Route Start Last Admin Trade Name Freq PRN Reason Stop Dose Admin Acetaminophen 650 mg 11/02/17 13:13 Tylenol - PO Q4H PRN pain 1-3 Albuterol Sulfate 1 amp 10/31/17 05:38 11/01/17 21:20 Ventolin 0.083% Nebulizer Soln - NEB 1 amp Q4H PRN Administration Wheezing Albuterol Sulfate 1 - 2 puff 10/31/17 12:58 Ventolin Hfa Inhaler - IH Q6H PRN ASTHMA Budesonide/Formoterol Fumarate 2 puff 10/31/17 10:00 11/02/17 09:04 Symbicort 80/4.5mcg - IH 2 puff BID ADILSON Administration Sodium Chloride 1,000 mls @ 125 mls/hr 10/31/17 05:30 11/02/17 11:19 Normal Saline - IV 125 mls/hr ASDIR ADILSON Administration CEFTRIAXONE 1 G/50 ML PREMIX 50 mls @ 100 mls/hr 10/31/17 22:00 11/02/17 09: 04 Ceftriaxone 1 Gm-D5w Bag IVPB 100 mls/hr DAILY ADILSON Administration Insulin Aspart 1 vial 10/31/17 07:00 11/02/17 11:50 Novolog Vial Sliding Scale - SQ 3 units ACHS ADILSON Administration Protocol Ketorolac Tromethamine 30 mg 11/02/17 13:13 Toradol Injection - IVPUSH 11/06/17 09:59 Q8H-IV PRN PAIN LEVEL 4 - 6 Lisinopril 5 mg 11/02/17 10:00 11/02/17 09:04 Prinivil PO 5 mg DAILY ADILSON Administration Morphine Sulfate 2 mg 11/02/17 13:10 Morphine Injection - IVPUSH Q6H PRN PAIN LEVEL 7 - 10 Pregabalin 100 mg 10/31/17 10:45 11/02/17 09:04 Lyrica - PO 100 mg BID ADILSON Administration Tamsulosin HCl 0.4 mg 10/31/17 08:30 11/02/17 09:04 Flomax - PO 0.4 mg DAILY@0830 ADILSON Administration ASSESSMENT/PLAN: 57M with hx of BPH s/p prostate procedure presenting with urinary frequency, dysuria, and left flank pain #UTI -2/2 BPH vs. renal stone -leukocytosis of 10.5, down from 14.4. afebrile -continue ceftriaxone (day 4) -Bcx: nothing x 48h -Ucx: negative, final -continue flomax and pain control with APAP, toradol, and morphine PRN -IVF -urology on board, f/u recs #KRISTINE -resolved -IVF -avoid nephrotoxic agents #DM - controlled -cont ISS, BGM #HTN - continue lisinopril -monitor BP #FEN/ppx -NS @ 125 -electrolytes wnl -diabetic diet -GI ppx not indicated -EAM Case discussed with attending, Dr. Lopes. -Av Allred MD PGY1 Visit type - Emergency Visit Emergency Visit: Yes ED Registration Date: 10/31/17 Care time: The patient presented to the Emergency Department on the above date and was hospitalized for further evaluation of their emergent condition. - New Patient This patient is new to me today: Yes Date on this admission: 11/02/17 - Critical Care Critical Care patient: No
[2017-11-03 07:04] LABS: ANION GAP 6 (8-16); BASO % 0.5 % (0-2.0); BLOOD UREA NITROGEN 14 mg/dL (7-18); CALCIUM 7.9 mg/dL (8.5-10.1); CHLORIDE 108 mmol/L (98-107); CO2 27 mmol/L (21-32); EOS % 3.4 % (0-4.5); GLUCOSE,RANDOM 107 mg/dL (74-106); HEMATOCRIT 41.2 % (35.4-49); HEMOGLOBIN 13.6 GM/dL (11.7-16.9); LYMPH % 20.1 % (8-40); MCH 28.9 pg (25.7-33.7); MEAN CELL VOLUME 87.6 fl (80-96); MEAN PLT VOLUME 7.9 fl (7.5-11.1); MONO % 5.4 % (3.8-10.2); NEUT % 70.6 % (42.8-82.8); PLATELET COUNT 226 K/MM3 (134-434); POTASSIUM 4.1 mmol/L (3.5-5.1); RDW 13.6 % (11.9-15.9); SODIUM 141 mmol/L (136-145); WHITE BLOOD COUNT 11.9 K/mm3 (4.0-10.0)
[2017-11-03] MEDS: INSULIN SLIDING SCALE (NOVOLOG) 1 VIAL SQ SCH ×4 (07:09→21:27)
[2017-11-03] MEDS ORDERED: KETOROLAC TROMETHAMINE 15 MG/ML VIAL IVPUSH PRN (08:03)
--- NOTE | 2017-11-03 08:03 | PN ---
<Av Allred - Last Filed: 11/03/17 14:10> Physical Exam: SUBJECTIVE: Patient seen and examined No acute events overnight. Pt states that back pain is slowly decreasing, today is 7/10. States that it is radiating from left flank around left side to left abdomen. He denies dysuria and nausea. OBJECTIVE: Vital Signs Period Temp Pulse Resp BP Sys/Sue Pulse Ox Last 24 Hr 97.6 F-98.7 F 66-85 18-18 108-156/61-79 98-98 GENERAL: The patient is awake, alert, and fully oriented, in no distress. HEENT: NC, AT LUNGS: Breath sounds equal, clear to auscultation bilaterally, no wheezes, no crackles, no accessory muscle use. HEART: Regular rate and rhythm, S1, S2 without murmur, rub or gallop. ABDOMEN: soft, obese, minimally tender over LUQ and LLQ Back: decreased left CVA tenderness EXTREMITIES: 2+ pulses, warm, well-perfused, no edema. NEUROLOGICAL: Cranial nerves II through XII grossly intact. Normal speech, gait not observed. Laboratory Results - last 24 hr 11/02/17 11/02/17 11/02/17 06:06 11:17 16:08 WBC 10.5 H RBC 4.82 Hgb 13.9 Hct 42.5 MCV 88.2 MCH 28.8 MCHC 32.7 RDW 13.9 Plt Count 225 MPV 7.9 Neutrophils % 70.5 Lymphocytes % 20.7 Monocytes % 5.5 Eosinophils % 2.9 Basophils % 0.4 Sodium Potassium Chloride Carbon Dioxide Anion Gap BUN Creatinine POC Glucometer 243 154 Random Glucose Calcium 11/02/17 11/03/17 11/03/17 21:26 05:35 05:35 WBC 11.9 H RBC 4.70 Hgb 13.6 Hct 41.2 MCV 87.6 MCH 28.9 MCHC 33.0 RDW 13.6 Plt Count 226 MPV 7.9 Neutrophils % 70.6 Lymphocytes % 20.1 Monocytes % 5.4 Eosinophils % 3.4 Basophils % 0.5 Sodium 141 Potassium 4.1 Chloride 108 H Carbon Dioxide 27 Anion Gap 6 L BUN 14 Creatinine 1.0 POC Glucometer 139 Random Glucose 107 H Calcium 7.9 L 11/03/17 07:08 WBC RBC Hgb Hct MCV MCH MCHC RDW Plt Count MPV Neutrophils % Lymphocytes % Monocytes % Eosinophils % Basophils % Sodium Potassium Chloride Carbon Dioxide Anion Gap BUN Creatinine POC Glucometer 109 Random Glucose Calcium Active Medications Generic Name Dose Route Start Last Admin Trade Name Natalia PRN Reason Stop Dose Admin Acetaminophen 650 mg 11/02/17 13:13 11/03/17 02:29 Tylenol - PO 650 mg Q4H PRN Administration pain 1-3 Albuterol Sulfate 1 amp 10/31/17 05:38 11/01/17 21:20 Ventolin 0.083% Nebulizer Soln - NEB 1 amp Q4H PRN Administration Wheezing Albuterol Sulfate 2 puff 10/31/17 12:58 Ventolin Hfa Inhaler - IH Q6H PRN ASTHMA Budesonide/Formoterol Fumarate 2 puff 10/31/17 10:00 11/02/17 21:52 Symbicort 80/4.5mcg - IH 2 puff BID ADILSON Administration Sodium Chloride 1,000 mls @ 125 mls/hr 10/31/17 05:30 11/02/17 19:22 Normal Saline - IV 125 mls/hr ASDIR ADILSON Administration CEFTRIAXONE 1 G/50 ML PREMIX 50 mls @ 100 mls/hr 10/31/17 22:00 11/02/17 09: 04 Ceftriaxone 1 Gm-D5w Bag IVPB 100 mls/hr DAILY ADILSON Administration Insulin Aspart 1 vial 10/31/17 07:00 11/03/17 07:09 Novolog Vial Sliding Scale - SQ Not Given ACHS ADILSON Protocol Ketorolac Tromethamine 30 mg 11/02/17 13:13 Toradol Injection - IVPUSH 11/06/17 09:59 Q8H-IV PRN PAIN LEVEL 4 - 6 Lisinopril 5 mg 11/02/17 10:00 11/02/17 09:04 Prinivil PO 5 mg DAILY ADILSON Administration Morphine Sulfate 2 mg 11/02/17 13:10 11/02/17 21:43 Morphine Injection - IVPUSH 2 mg Q6H PRN Administration PAIN LEVEL 7 - 10 Pregabalin 100 mg 10/31/17 10:45 11/02/17 21:49 Lyrica - PO 100 mg BID ADILSON Administration Tamsulosin HCl 0.4 mg 10/31/17 08:30 11/02/17 09:04 Flomax - PO 0.4 mg DAILY@0830 [facility] Administration ASSESSMENT/PLAN: 57M with hx of BPH s/p prostate procedure presenting with urinary frequency, dysuria, and left flank pain. #UTI -2/2 BPH vs. renal stone -leukocytosis of 11.9, up from 10.5. afebrile -continue ceftriaxone (day 5) -Bcx: nothing x 48h -Ucx: negative, final -continue flomax and pain control with APAP and toradol PRN -IVF -urology on board, f/u recs -renal US (11/02): normal, no hydro #KRISTINE -resolved -IVF -avoid nephrotoxic agents #DM - controlled -cont ISS, BGM #HTN - continue lisinopril -monitor BP #FEN/ppx -NS @ 125 -electrolytes wnl -diabetic diet -GI ppx not indicated -EAM Case discussed with attending, Dr. Woodruff. -Av Allred MD PGY1 Visit type - Emergency Visit Emergency Visit: Yes ED Registration Date: 10/31/17 Care time: The patient presented to the Emergency Department on the above date and was hospitalized for further evaluation of their emergent condition. - New Patient This patient is new to me today: No - Critical Care Critical Care patient: No <Trena Woodruff - Last Filed: 11/03/17 15:06> Physical Exam: Patient seen and examined at 12:[address] Allred. Agree with above findings, plan of care with exceptions mentioned below. Patient still with left flank pain though improved urinary symptoms. no fevers/chills, taking PO well O/E: noted sleeping comfortably when in room Abdomen: left CVA tenderness, abdomen otherwise, soft, obese, NT throughout, positive bowel sounds chest: CTAB, no rales or wheezing Plan: -Sepsis due to complicated UTI -Nephrolithiasis -KRISTINE, resolved -NIDDM -HTN -Asthma Ceftriaxone day 5, urine/blood cultures neg so far. patient still symptomatic with rising WBC. Repeat u.a. Readdress with Urology Dr. Rivera and follow up additional recs. Retrieve info on prior urological procedure at [facility], urine cultures and antibiotic treatment. d/c morphine for now. Acetaminophen/toradol prn. ISS, diabetic diet . Reconcile home anti-hypertensives and resume accordingly DVTPPx dispo pending urology input. Plan discussed with patient in detail and all questions answered.
[2017-11-03] MEDS: CEFTRIAXONE 1 G/50 ML PREMIX 50 ML IVPB SCH (10:17)
[2017-11-03] MEDS: PREGABALIN 50 MG CAPSULE PO SCH ×2 (10:17→21:24)
[2017-11-03] MEDS: LISINOPRIL 5 MG TABLET (FP) PO SCH (10:17)
[2017-11-03] MEDS: TAMSULOSIN HCL 0.4 MG CAP.ER.24H (FP) PO SCH (10:17)
[2017-11-03] MEDS ORDERED: PT OWN MED DRAWER 7, Y5N ONE (10:26)
[2017-11-03] MEDS: BUDESONIDE/FORMETEROL FUMARATE 80/4.5 mcg INHALER IH SCH ×2 (10:27→21:26)
[2017-11-03] MEDS: ACETAMINOPHEN 325 MG TABLET (FP) PO PRN (11:35)
[2017-11-03] MEDS: SODIUM CHLORIDE 1,000 ML IV SCH (14:00)
--- NOTE | 2017-11-03 16:57 | CON.GU ---
Consult Consult Specialty:: Urology Reason for Consultation:: Left Renal Colic - History of Present Illness Chief Complaint: Pain in the left flank area - History Source History Provided By: Patient Limitations to Obtaining History: No Limitations - Past Medical History Cardio/Vascular: Yes: HTN Pulmonary: Yes: Asthma, COPD Renal/: Yes: Renal Calculi (S/P MULTIPLE LITHOTRIPSIES) Endocrine: Yes: Diabetes Mellitus - Alcohol/Substance Use Hx Alcohol Use: No History of Substance Use: reports: None - Smoking History Smoking history: Never smoked Have you smoked in the past 12 months: No Aproximately how many cigarettes per day: 0 - Social History ADL: Independent Occupation: Retired Home Medications - Allergies Allergies/Adverse Reactions: Allergies Allergy/AdvReac Type Severity Reaction Status Date / Time No Known Allergies Allergy Verified 10/30/17 22:42 - Home Medications Home Medications: Ambulatory Orders Metformin HCl 1,000 mg PO DAILY 08/13/15 Albuterol 0.083% Nebulizer Nasreen [Ventolin 0.083% Nebulizer Soln -] 1 neb NEB Q4H PRN #10 vial 05/02/16 Albuterol Sulfate Inhaler - [Ventolin HFA Inhaler -] 1 - 2 inh PO PRN PRN #1 inhaler 05/02/16 Fluticasone/Salmeterol [Advair 250-50 Diskus] 1 unit IN DAILY 12/11/16 Pregabalin [Lyrica] 100 mg PO BID 12/11/16 Tamsulosin HCl [Flomax] 0.4 mg PO DAILY 12/11/16 Albuterol 0.083% Nebulizer Nasreen [Ventolin 0.083% Nebulizer Soln -] 1 neb NEB Q4H #90 vial 07/10/17 Metoprolol Tartrate [Lopressor] 50 mg PO BID 11/03/17 Physical Exam- Vital Signs: Vital Signs Temperature 98.3 F 11/03/17 14:00 Pulse Rate 78 11/03/17 14:00 Respiratory Rate 18 11/03/17 14:00 Blood Pressure 115/64 11/03/17 14:00 O2 Sat by Pulse Oximetry (%) 97 11/03/17 10:00 Labs: CBC, BMP 11/03/17 05:35 11/03/17 05:35 Assessment/Plan 57 year Old male admitted to the hospital with left renal colic. Pt gives hx of renal calculous disease. Has had ESWLs before. He was supposed to have another ESWL scheduled but before that he was admitted for pain. According to the pat. he also developed UTI. He claims pain to be present still. Ct Scan of the abdomen and renal ultrasound reviwed. Few punctate calculi noted in the left collecting system. No hydronephrosis noted. This is confirmed with renal sonogram. The situation discussed with the pt. Advised the patient to be discharged . He will get in touch with my office for further treatment. Pt is in agreement. Plan: Discharge the patient with antibiotics and some form of pain management. he will contact the office tomorrow for further treatment. Thank you, Will follow as necessary
[2017-11-03 17:09] LABS: URINE APPEARANCE CLEAR; URINE BILIRUBIN NEGATIVE (NEGATIVE); URINE BLOOD 1+ (NEGATIVE); URINE COLOR COLORLESS; URINE GLUCOSE (UA) 1+ (NEGATIVE); URINE KETONE NEGATIVE (NEGATIVE); URINE LEUK ESTERASE TRACE (NEGATIVE); URINE NITRITE NEGATIVE (NEGATIVE); URINE PROTEIN NEGATIVE (NEGATIVE); URINE UROBILINOGEN NEGATIVE mg/dL (0.2-1.0)
[2017-11-03] MEDS: METOPROLOL TARTRATE 50 MG TABLET (FP) PO SCH (21:25)
[2017-11-03] MEDS ORDERED: METOPROLOL TARTRATE 50 MG TABLET (FP) PO SCH (22:00)
[2017-11-04] MEDS: ACETAMINOPHEN 325 MG TABLET (FP) PO PRN (05:27)
[2017-11-04] MEDS: SODIUM CHLORIDE 1,000 ML IV SCH (05:27)
[2017-11-04] MEDS: INSULIN SLIDING SCALE (NOVOLOG) 1 VIAL SQ SCH (06:52)
[2017-11-04 07:31] LABS: BASO % 0.4 % (0-2.0); EOS % 2.6 % (0-4.5); HEMATOCRIT 44.2 % (35.4-49); HEMOGLOBIN 14.4 GM/dL (11.7-16.9); LYMPH % 17.2 % (8-40); MCH 28.6 pg (25.7-33.7); MCHC 32.5 g/dl (32.0-35.9); MEAN PLT VOLUME 8.2 fl (7.5-11.1); MONO % 6.3 % (3.8-10.2); NEUT % 73.5 % (42.8-82.8); PLATELET COUNT 239 K/MM3 (134-434); RBC 5.02 M/mm3 (4.00-5.60); RDW 13.9 % (11.9-15.9); WHITE BLOOD COUNT 12.1 K/mm3 (4.0-10.0)
[2017-11-04 07:47] LABS: ANION GAP 9 (8-16); BLOOD UREA NITROGEN 12 mg/dL (7-18); CALCIUM 8.5 mg/dL (8.5-10.1); CHLORIDE 105 mmol/L (98-107); CO2 27 mmol/L (21-32); GLUCOSE,RANDOM 153 mg/dL (74-106); POTASSIUM 4.4 mmol/L (3.5-5.1); SODIUM 141 mmol/L (136-145)
--- NOTE | 2017-11-04 08:39 | DS ---
Physical Exam: SUBJECTIVE: Patient seen and examined No acute events overnight. This am, pt reports that left flank pain is down to a 4/10. He denies nausea, emesis, chest pain, SOB, abdominal pain, diarrhea, constipation, and dysuria. OBJECTIVE: Vital Signs Period Temp Pulse Resp BP Sys/Sue Pulse Ox Last 24 Hr 97.0 F-98.3 F 71-91 18-20 115-144/64-93 97-98 PHYSICAL EXAM GENERAL: The patient is awake, alert, and fully oriented, in no distress. HEENT: NC, AT LUNGS: Breath sounds equal, clear to auscultation bilaterally, no wheezes, no crackles, no accessory muscle use. HEART: Regular rate and rhythm, S1, S2 without murmur, rub or gallop. ABDOMEN: soft, obese, NT Back: No left CVA tenderness EXTREMITIES: 2+ pulses, warm, well-perfused, no edema. NEUROLOGICAL: Cranial nerves II through XII grossly intact. Normal speech, gait not observed. LABS Laboratory Results - last 24 hr 11/03/17 11/03/17 11/03/17 11:34 15:25 16:16 WBC RBC Hgb Hct MCV MCH MCHC RDW Plt Count MPV Neutrophils % Lymphocytes % Monocytes % Eosinophils % Basophils % Sodium Potassium Chloride Carbon Dioxide Anion Gap BUN Creatinine POC Glucometer 138 183 Random Glucose Calcium Urine Color Colorless Urine Appearance Clear Urine pH 7.0 D Ur Specific [place] 1.008 Urine Protein Negative Urine Glucose (UA) 1+ H Urine Ketones Negative Urine Blood 1+ H Urine Nitrite Negative Urine Bilirubin Negative Urine Urobilinogen Negative Ur Leukocyte Esterase Trace Urine WBC (Auto) 3 Urine RBC (Auto) 1 11/03/17 11/04/17 11/04/17 21:24 05:26 07:12 WBC 12.1 H RBC 5.02 Hgb 14.4 Hct 44.2 MCV 88.0 MCH 28.6 MCHC 32.5 RDW 13.9 Plt Count 239 MPV 8.2 Neutrophils % 73.5 Lymphocytes % 17.2 Monocytes % 6.3 Eosinophils % 2.6 Basophils % 0.4 Sodium Potassium Chloride Carbon Dioxide Anion Gap BUN Creatinine POC Glucometer 186 166 Random Glucose Calcium Urine Color Urine Appearance Urine pH Ur Specific [place] Urine Protein Urine Glucose (UA) Urine Ketones Urine Blood Urine Nitrite Urine Bilirubin Urine Urobilinogen Ur Leukocyte Esterase Urine WBC (Auto) Urine RBC (Auto) 11/04/17 07:12 WBC RBC Hgb Hct MCV MCH MCHC RDW Plt Count MPV Neutrophils % Lymphocytes % Monocytes % Eosinophils % Basophils % Sodium 141 Potassium 4.4 Chloride 105 Carbon Dioxide 27 Anion Gap 9 BUN 12 Creatinine 1.0 POC Glucometer Random Glucose 153 H D Calcium 8.5 Urine Color Urine Appearance Urine pH Ur Specific [place] Urine Protein Urine Glucose (UA) Urine Ketones Urine Blood Urine Nitrite Urine Bilirubin Urine Urobilinogen Ur Leukocyte Esterase Urine WBC (Auto) Urine RBC (Auto) Microbiology 10/31/17 08:00 Blood - Peripheral Venous Blood Culture - Preliminary NO GROWTH OBTAINED AFTER 96 HOURS, INCUBATION TO CONTINUE FOR 1 DAYS. 10/31/17 08:05 Blood - Peripheral Venous Blood Culture - Preliminary NO GROWTH OBTAINED AFTER 96 HOURS, INCUBATION TO CONTINUE FOR 1 DAYS. 11/01/17 11:52 Urine - Urine Clean Catch Urine Culture - Final NO GROWTH OBTAINED 10/31/17 00:26 Urine - Urine Clean Catch Urine Culture - Final Contaminated: Please Repeat CT abdomen/pelvis: right renal dense cyst, grossly unchanged. Non-obstructing left renal calculi. HOSPITAL COURSE: Date of Admission:10/31/17 Date of Discharge: 11/04/17 57M with hx of BPH s/p prostate procedure, nephrolithiasis s/p multiple ESWL procedures, asthma, and DM presenting with urinary frequency, dysuria, and left flank pain, found to have sepsis, admitted for sepsis 2/2 possible UTI. UA only showed 1+ LE and 12 wbc, and Ucx was negative. CT abdomen/pelvis did not show pyelonephritis or any obstructing stones. Renal US did not show any hydronephrosis, hydroureter, or stones. Pt was treated with ceftriaxone, pain control and IV fluids. He was seen by urology who stated that pt was ok for discharge. Today, pt has minimal pain, normal vitals, a normal physical exam, improved labs , and is stable for discharge home. Pt instructed to f/u with PCP and urology. -Av Allred MD PGY1 Minutes to complete discharge: 37 Discharge Summary Reason For Visit: UTI/CALCULUS OF LEFT KIDNEY Current Active Problems Abdominal pain (Acute) Renal calculus, left (Acute) Renal colic on left side (Acute) UTI (urinary tract infection) (Acute) Condition: Stable - Instructions Diet, Activity, Other Instructions: You presented with urinary symptoms, and you were treated with antibiotics and pain control for possible UTI. Small but non obstructing stones was found on CT imaging to explain your symptoms. Medications: Continue all previous medications except: 1. Take tylenol or motrin (take with plenty of fluids and food) as needed for pain Follow-ups: 1. Please visit your PCP within one week. 2. Please visit Dr. Rivera in one week to ensure resolution of symptoms and to evaluate you for a further lithotripsy procedure. If you develop any worsening flank pain, fevers, chills, pain upon urination, or any other concerning symptoms, return to the ED. Referrals: Omar Rivera [Primary Care Provider] - Dhaval Rivera MD [Staff Physician] - Disposition: HOME - Home Medications Comprehensive Discharge Medication List: Ambulatory Orders Metformin HCl 1,000 mg PO DAILY 08/13/15 Albuterol 0.083% Nebulizer Nasreen [Ventolin 0.083% Nebulizer Soln -] 1 neb NEB Q4H PRN #10 vial 05/02/16 Albuterol Sulfate Inhaler - [Ventolin HFA Inhaler -] 1 - 2 inh PO PRN PRN #1 inhaler 05/02/16 Fluticasone/Salmeterol [Advair 250-50 Diskus] 1 unit IN DAILY 12/11/16 Pregabalin [Lyrica] 100 mg PO BID 12/11/16 Tamsulosin HCl [Flomax] 0.4 mg PO DAILY 12/11/16 Albuterol 0.083% Nebulizer Nasreen [Ventolin 0.083% Nebulizer Soln -] 1 neb NEB Q4H #90 vial 07/10/17 Metoprolol Tartrate [Lopressor] 50 mg PO BID 11/03/17 Acetaminophen [Tylenol .Regular Strength -] 650 mg PO Q4H PRN tablet 11/04/17 This patient is new to me today: No Emergency Visit: Yes ED Registration Date: 10/31/17 Care time: The patient presented to the Emergency Department on the above date and was hospitalized for further evaluation of their emergent condition. Critical Care patient: No - Discharge Referral Referred to [facility] No
--- NOTE | 2017-11-04 08:49 | PN ---
Teaching Attending Note Name of Resident: Av Allred ATTENDING PHYSICIAN STATEMENT I saw and evaluated the patient. I reviewed the resident's note and discussed the case with the resident. I agree with the resident's findings and plan as documented. SUBJECTIVE: Patient seen and examined, flank pain improved. No new fevers/chills or urinary symptoms, tolerating diet well. OBJECTIVE: Vital Signs Period Temp Pulse Resp BP Sys/Sue Pulse Ox Last 24 Hr 97.0 F-98.3 F 71-91 18-20 115-144/64-93 97-98 Intake & Output 11/01/17 11/02/17 11/03/17 11/04/17 23:59 23:59 23:59 23:59 Intake Total 2370 2575 2925 Output Total 2400 1330 3080 350 Balance -30 -975 -155 -350 Weight 207 lb 2 oz 209 lb 8 oz 208 lb 6 oz General: lying in bed in no acute distress Abdomen: improved left CVA tenderness, otherwise unchanged exam with no new tenderness or distension Home Medication List Medication Instructions Recorded Confirmed Type Metformin HCl 1,000 mg PO DAILY 08/13/15 10/31/17 History Fluticasone/Salmeterol [Advair 1 unit IN DAILY 12/11/16 10/31/17 History 250-50 Diskus] Pregabalin [Lyrica] 100 mg PO BID 12/11/16 10/31/17 History Tamsulosin HCl [Flomax] 0.4 mg PO DAILY 12/11/16 10/31/17 History Metoprolol Tartrate [Lopressor] 50 mg PO BID 11/03/17 11/03/17 History Active Medications Generic Name Dose Route Start Last Admin Trade Name Freq PRN Reason Stop Dose Admin Acetaminophen 650 mg 11/03/17 08:04 11/04/17 05:27 Tylenol - PO 650 mg Q4H PRN Administration PAIN Albuterol Sulfate 1 amp 10/31/17 05:38 11/01/17 21:20 Ventolin 0.083% Nebulizer Soln - NEB 1 amp Q4H PRN Administration Wheezing Albuterol Sulfate 2 puff 10/31/17 12:58 Ventolin Hfa Inhaler - IH Q6H PRN ASTHMA Budesonide/Formoterol Fumarate 2 puff 10/31/17 10:00 11/03/17 21:26 Symbicort 80/4.5mcg - IH 2 puff BID ADILSON Administration Sodium Chloride 1,000 mls @ 125 mls/hr 10/31/17 05:30 11/04/17 05:27 Normal Saline - IV 125 mls/hr ASDIR ADILSON Administration CEFTRIAXONE 1 G/50 ML PREMIX 50 mls @ 100 mls/hr 10/31/17 22:00 11/03/17 10: 17 Ceftriaxone 1 Gm-D5w Bag IVPB 100 mls/hr DAILY ADILSON Administration Insulin Aspart 1 vial 10/31/17 07:00 11/04/17 06:52 Novolog Vial Sliding Scale - SQ 2 units ACHS ADILSON Administration Protocol Ketorolac Tromethamine 15 mg 11/03/17 08:03 11/03/17 22:18 Toradol Injection - IVPUSH 11/08/17 08:02 15 mg Q6H PRN Administration PAIN LEVEL 6-10 Metoprolol Tartrate 50 mg 11/03/17 22:00 11/03/17 21:25 Lopressor - PO 50 mg BID ADILSON Administration Pregabalin 100 mg 10/31/17 10:45 11/03/17 21:24 Lyrica - PO 100 mg BID ADILSON Administration Tamsulosin HCl 0.4 mg 10/31/17 08:30 11/03/17 10:17 Flomax - PO 0.4 mg DAILY@0830 ADILSON Administration Laboratory Results - last 24 hr 11/03/17 11/03/17 11/03/17 11:34 15:25 16:16 WBC RBC Hgb Hct MCV MCH MCHC RDW Plt Count MPV Neutrophils % Lymphocytes % Monocytes % Eosinophils % Basophils % Sodium Potassium Chloride Carbon Dioxide Anion Gap BUN Creatinine POC Glucometer 138 183 Random Glucose Calcium Urine Color Colorless Urine Appearance Clear Urine pH 7.0 D Ur Specific [place] 1.008 Urine Protein Negative Urine Glucose (UA) 1+ H Urine Ketones Negative Urine Blood 1+ H Urine Nitrite Negative Urine Bilirubin Negative Urine Urobilinogen Negative Ur Leukocyte Esterase Trace Urine WBC (Auto) 3 Urine RBC (Auto) 1 11/03/17 11/04/17 11/04/17 21:24 05:26 07:12 WBC 12.1 H RBC 5.02 Hgb 14.4 Hct 44.2 MCV 88.0 MCH 28.6 MCHC 32.5 RDW 13.9 Plt Count 239 MPV 8.2 Neutrophils % 73.5 Lymphocytes % 17.2 Monocytes % 6.3 Eosinophils % 2.6 Basophils % 0.4 Sodium Potassium Chloride Carbon Dioxide Anion Gap BUN Creatinine POC Glucometer 186 166 Random Glucose Calcium Urine Color Urine Appearance Urine pH Ur Specific [place] Urine Protein Urine Glucose (UA) Urine Ketones Urine Blood Urine Nitrite Urine Bilirubin Urine Urobilinogen Ur Leukocyte Esterase Urine WBC (Auto) Urine RBC (Auto) 11/04/17 07:12 WBC RBC Hgb Hct MCV MCH MCHC RDW Plt Count MPV Neutrophils % Lymphocytes % Monocytes % Eosinophils % Basophils % Sodium 141 Potassium 4.4 Chloride 105 Carbon Dioxide 27 Anion Gap 9 BUN 12 Creatinine 1.0 POC Glucometer Random Glucose 153 H D Calcium 8.5 Urine Color Urine Appearance Urine pH Ur Specific [place] Urine Protein Urine Glucose (UA) Urine Ketones Urine Blood Urine Nitrite Urine Bilirubin Urine Urobilinogen Ur Leukocyte Esterase Urine WBC (Auto) Urine RBC (Auto) Microbiology 10/31/17 08:00 Blood - Peripheral Venous Blood Culture - Preliminary NO GROWTH OBTAINED AFTER 96 HOURS, INCUBATION TO CONTINUE FOR 1 DAYS. 10/31/17 08:05 Blood - Peripheral Venous Blood Culture - Preliminary NO GROWTH OBTAINED AFTER 96 HOURS, INCUBATION TO CONTINUE FOR 1 DAYS. 11/01/17 11:52 Urine - Urine Clean Catch Urine Culture - Final NO GROWTH OBTAINED 10/31/17 00:26 Urine - Urine Clean Catch Urine Culture - Final Contaminated: Please Repeat ASSESSMENT AND PLAN: 57 yom with Left flank pain and CVA tenderness with non obstructing nephrolithiasis. Markedly improved. Urology input noted. repeat urinalysis neg for infection Urine cultures neg. No further indication for antibiotics. Discussed with patient about outpatient follow up with urology in 1 week and if worsening symptoms, fevers or chils, to come back to ED d/c home today. PLan discussed with patient in detail and all questions answered.
[2017-11-04] MEDS: PREGABALIN 50 MG CAPSULE PO SCH (10:02)
[2017-11-04] MEDS: TAMSULOSIN HCL 0.4 MG CAP.ER.24H (FP) PO SCH (10:02)
[2017-11-04] MEDS: METOPROLOL TARTRATE 50 MG TABLET (FP) PO SCH (10:02)
[2017-11-04 10:26] VITALS: BP 142/81; PULSE 85; TEMP 98.4
[2017-11-04] MEDS: CEFTRIAXONE 1 G/50 ML PREMIX 50 ML IVPB SCH (10:38)
[2017-11-04] MEDS: BUDESONIDE/FORMETEROL FUMARATE 80/4.5 mcg INHALER IH SCH (10:38)
== END 2017-11-04 12:24 | disposition home or self-care (01) | DRG 862 ==
LOC: JER 22:35 → UNDOADMOB 10-31 04:43 → JERBED 10-31 04:43 → UNDOADMOB 10-31 04:57 → OBSVTOIN 10-31 05:30 → INTOOBSV 10-31 05:31 → UNDOADMOB 10-31 05:47 → JERBED 10-31 05:47 → J4S 10-31 07:04 → JERBED 10-31 07:04
PROVIDERS: ADMIT Internal Medicine; ATTEND Hospitalist
DX: T81.4XXA Infection following a procedure, initial encounter (principal); A41.9 Sepsis, unspecified organism; N39.0 Urinary tract infection, site not specified; N17.9 Acute kidney failure, unspecified; J98.11 Atelectasis; N41.9 Inflammatory disease of prostate, unspecified; J45.909 Unspecified asthma, uncomplicated; E11.9 Type 2 diabetes mellitus without complications; N20.0 Calculus of kidney; R10.9 Unspecified abdominal pain; I10 Essential (primary) hypertension; N40.0 Benign prostatic hyperplasia without lower urinary tract symptoms; Y83.9 Surgical procedure, unspecified as the cause of abnormal reaction of the patient, or of later complication, without mention of misadventure at the time of the procedure
CPT/HCPCS: 36415; 74176; 76775-TC; 80048; 80053; 81003; 81015; 82962; 85025; 87040; 87086; 94010; 94640; 99282-25; G0378

== ENCOUNTER 2018-08-26 15:23 | Emergency (ER) | payer OTHER ==
--- NOTE | 2018-08-26 15:44 | PDOC ---
Rapid Medical Evaluation Medical Evaluation: Allergies Allergy/AdvReac Type Severity Reaction Status Date / Time No Known Allergies Allergy Verified 10/30/17 22:42 I have performed a brief in-person evaluation of this patient. The patient presents with a chief complaint of: Noted elevated BP from yesterday. Starting have some L shoulder pain from today. Denies sob, cp, n/v, headache, visual/gait changes, numbness/tingling of extremities Pertinent physical exam findings: In NAD, lungs clear I have ordered the following: Labs, EKG The patient will proceed to the ED for further evaluation. 08/26/18 15:42 Discharge Disposition - Referrals Referrals: Omar Rivera [Primary Care Provider] - - Patient Instructions - Post Discharge Activity
[2018-08-26 15:46] VITALS: BMI 35.2
[2018-08-26 16:30] LABS: BASO % 0.6 % (0-2.0); EOS % 2.7 % (0-4.5); HEMATOCRIT 44.8 % (35.4-49); HEMOGLOBIN 15.8 GM/dL (11.7-16.9); MCH 30.8 pg (25.7-33.7); MCHC 35.1 g/dl (32.0-35.9); MEAN CELL VOLUME 87.6 fl (80-96); MEAN PLT VOLUME 8.5 fl (7.5-11.1); NEUT % 71.7 % (42.8-82.8); PLATELET COUNT 308 K/MM3 (134-434); RBC 5.12 M/mm3 (4.00-5.60); RDW 12.9 % (11.9-15.9); WHITE BLOOD COUNT 9.8 K/mm3 (4.0-10.0)
[2018-08-26 16:43] LABS: ANION GAP 7 MMOL/L (8-16); BLOOD UREA NITROGEN 14 mg/dL (7-18); CALCIUM 9.4 mg/dL (8.5-10.1); CHLORIDE 99 mmol/L (98-107); CO2 31 mmol/L (21-32); CREATININE 1.3 mg/dL (0.55-1.3); GLUCOSE,RANDOM 194 mg/dL (74-106); POTASSIUM 4.2 mmol/L (3.5-5.1); SODIUM 136 mmol/L (136-145)
--- NOTE | 2018-08-26 20:01 | PDOC ---
History of Present Illness - General Chief Complaint: Blood Pressure Problem Stated Complaint: Blood Pressure Problem Time Seen by Provider: 08/26/18 19:45 History Source: Patient Exam Limitations: No Limitations - History of Present Illness Initial Comments: 08/26/18 20:07 HISTORY OF PRESENT ILLNESS: This is a 58-year-old male past medical history of asthma, hypertension, diabetes presents emergency department for atraumatic left shoulder pain and elevated blood pressure for 1 day. Patient reports having intermittent palpitations. Patient states he ran out of his metoprolol approximately one week ago and has not had it filled. He states he was unaware that this medication was to help control his blood pressure but understood this help controlled his heart rate. Patient provided blood pressure readings from his home machine with the highest reading being 193/112. He denies chest pain, shortness of breath, dizziness, lightheadedness, blurry vision, abdominal pain, nausea, vomiting, diaphoresis. patient took 81mg of ASA prior to arrival. No recent travel or sick contacts. PAST MEDICAL HISTORY:see HPI SURGICAL HISTORY: Denies ALLERGIES: No known drug allergies REVIEW OF SYSTEMS General/Constitutional: Denies fever or chills. Denies weakness, weight change. HEENT: Denies change in vision. Denies ear pain or discharge. Denies sore throat. Cardiovascular: Denies chest pain or shortness of breath. Respiratory: Denies cough, wheezing, or hemoptysis. Gastrointestinal: Denies nausea, vomiting, diarrhea or constipation. Denies rectal bleeding. Genitourinary: Denies dysuria, frequency, or change in urination. Musculoskeletal: Left shoulder pain. Denies neck or back pain. Skin and breasts: Denies rash or easy bruising. Neurologic: Denies headache, vertigo, loss of consciousness, or loss of sensation. Psychiatric: Denies depression or anxiety. Endocrine: Denies increased thirst. Denies abnormal weight change. Hematologic/Lymphatic: Denies anemia, easy bleeding, or history of blood clots. Allergic/Immunologic: Denies hives or skin allergy. Denies latex allergy. PHYSICAL EXAM General Appearance: Well-appearing, appropriately dressed. No apparent distress , no intoxication. HEENT: EOMI, PERRLA, normal ENT inspection, normal voice, TMs normal, pharynx normal. No conjunctival pallor. No photophobia, scleral icterus. Neck: Supple. Trachea midline. No tenderness, rigidity, carotid bruit, stridor , lymphadenopathy, or thyromegaly. Respiratory/Chest: Lungs CTAB. No shortness of breath, chest tenderness, respiratory distress, accessory muscle use. No crackles, rales, rhonchi, stridor , wheezing, dullness Cardiovascular: Tachycardia with regular rate. S1, S2. No JVD, murmur, bradycardia. Vascular Pulses: Dorsalis-Pedis (R): 2+, Dorsalis-Pedis (L): 2+ Gastrointestinal/Abdominal: Normal bowel sounds. Abdomen soft, non-distended. No tenderness or rebound tenderness. No organomegaly, pulsatile mass, guarding, hernia, hepatomegaly, splenomegaly. Lymphatic: No adenopathy, tenderness. Musculoskeletal/Extremities: Normal inspection. FROM of all extremities, normal capillary refill. Pelvis Stable. No CVA tenderness. No tenderness to extremities, pedal edema, swelling, erythema or deformity. Integumentary: Appropriate color, dry, warm. No cyanosis, erythema, jaundice or rash Neurologic: chief dispatcher service II-XII intact. Fully oriented, alert. Appropriate mood/affect. Motor strength 5/5. No appreciable EOM palsy, facial droop or sensory deficit. Past History - Past Medical History Allergies/Adverse Reactions: Allergies Allergy/AdvReac Type Severity Reaction Status Date / Time No Known Allergies Allergy Verified 08/26/18 15:46 Home Medications: Ambulatory Orders metFORMIN HCL [Metformin HCl] 1,000 mg PO DAILY 08/13/15 Albuterol 0.083% Nebulizer Nasreen [Ventolin 0.083% Nebulizer Soln -] 1 neb NEB Q4H PRN #10 vial 05/02/16 Fluticasone/Salmeterol [Advair 250-50 Diskus] 1 unit IN DAILY 12/11/16 Pregabalin [Lyrica] 100 mg PO BID 12/11/16 Tamsulosin HCl [Flomax] 0.4 mg PO DAILY 12/11/16 Albuterol 0.083% Nebulizer Nasreen [Ventolin 0.083% Nebulizer Soln -] 1 neb NEB Q4H #90 vial 07/10/17 Acetaminophen [Tylenol .Regular Strength -] 650 mg PO Q4H PRN tablet 11/04/17 Albuterol Sulfate Inhaler - [Ventolin HFA Inhaler -] 1 - 2 inh PO PRN PRN #1 inhaler 11/04/17 Metoprolol Tartrate [Lopressor] 50 mg PO BID #30 tablet 08/26/18 Anemia: No Asthma: Yes Cancer: Yes Cardiac Disorders: Yes (tachycardia run out of metoprolol 1 week ago) COPD: No CHF: No Diabetes: Yes (niddm) Disorders: Yes (BPH) Kidney Stones: Yes - Surgical History Orthopedic Surgery: Yes (Torn Right Rotator Cuff, tendon and muscle repair) - Immunization History Immunization Up to Date: Yes - Suicide/Smoking/Psychosocial Hx Smoking Status: No Smoking History: Never smoked Years of Tobacco Use: 0 Have you smoked in the past 12 months: No Number of Cigarettes Smoked Daily: 0 Cigars Per Day: 0 Information on smoking cessation initiated: No Hx Alcohol Use: No Drug/Substance Use Hx: No Substance Use Type: None Hx Substance Use Treatment: No *Physical Exam - Vital Signs Last Vital Signs Temp Pulse Resp BP Pulse Ox 98.9 F 110 H 16 170/97 100 08/26/18 15:43 08/26/18 15:43 08/26/18 15:43 08/26/18 15:43 08/26/18 15:43 Moderate Sedation - Procedure Monitoring Vital Signs: Procedure Monitoring Vital Signs Temperature 98.9 F 08/26/18 15:43 Pulse Rate 110 H 08/26/18 15:43 Respiratory Rate 16 08/26/18 15:43 Blood Pressure 170/97 08/26/18 15:43 O2 Sat by Pulse Oximetry (%) 100 08/26/18 15:43 Heart Score/ECG Review - History History: Moderately suspicious - Electrocardiogram EKG: Normal - Age Age: 45-65 - Risk Factors Risk Factors Heart Score: Yes Hx Hypertension, Yes Hx Diabetes Based on the list above the patient has:: 1-2 risk factors - Troponin Troponin: </= normal limit - Score Heart Score - Total: 3 - ECG Intrepretation Rhythm: Regular Rhythm - ECG Impressions Tachycardia: Sinus ED Treatment Course - LABORATORY CBC & Chemistry Diagram: 08/26/18 15:55 08/26/18 15:55 - ADDITIONAL ORDERS Additional order review: Laboratory Results 08/26/18 15:55 Sodium 136 Potassium 4.2 Chloride 99 Carbon Dioxide 31 Anion Gap 7 L BUN 14 Creatinine 1.3 Creat Clearance w eGFR 56.31 Random Glucose 194 H Calcium 9.4 Troponin I < 0.02 08/26/18 15:55 RBC 5.12 MCV 87.6 MCHC 35.1 RDW 12.9 MPV 8.5 Neutrophils % 71.7 Lymphocytes % 20.0 Monocytes % 5.0 Eosinophils % 2.7 Basophils % 0.6 Medical Decision Making - Medical Decision Making 08/26/18 20:12 A/P: 58-year-old male left shoulder pain and palpitations for 1 day Tachycardic regular rate of 110. No murmur, rub or gallop noted Lungs clear to auscultation bilaterally Palpation of the left shoulder reveals no deformity or crepitus Abdomen soft nontender nondistended This is most likely reaction to patient not having his metoprolol the past 7 days. This patient does have a significant cardiac history we'll obtain 2 sets of cardiac enzymes, basic labs, urinalysis, EKG, chest x-ray, shoulder x-ray and give the patient's with carpal 5 mg IV as well as 50 mg orally. 08/26/18 20:50 EKG reviewed by me as read per printed by Dr. Moraes: Sinus rhythm with rate of 104. Normal intervals present. No ischemic changes noted. 08/26/18 22:37 Chest x-ray as read by me: Angles clear. Cardiac silhouette is within normal limits. No focal infiltrates or consolidations noted. Left shoulder x-rays read by me: No acute fractures or dislocations present. Mortise is intact. No dislocation of the acromioclavicular joint. Repeat cardiac enzymes are within normal limits. Repeat blood pressure 123/82, heart rate of 90. Patient is currently asymptomatic.. I will discharge the patient home with a prescription to refill his metoprolol and instructions to follow-up with his primary doctor within the next 7 days. I discussed the physical exam findings, ancillary test results and final diagnoses with the patient. I answered all of the patient's questions. The patient was satisfied with the care received and felt comfortable with the discharge plan and treatment plan. The patient will call their primary care physician within 24 hours to arrange follow-up and will return to the Emergency Department with any new, persistent or worsening symptoms. *DC/Admit/Observation/Transfer Diagnosis at time of Disposition: HTN (hypertension) Qualifiers: Hypertension type: essential hypertension Qualified Code(s): I10 - Essential ( primary) hypertension Shoulder pain, left Qualifiers: Chronicity: acute Qualified Code(s): M25.512 - Pain in left shoulder - Discharge Dispostion Disposition: HOME Condition at time of disposition: Fair Decision to Admit order: No - Prescriptions Prescriptions: Metoprolol Tartrate [Lopressor] 50 mg PO BID #30 tablet - Referrals Referrals: Omar Rivera [Primary Care Provider] - - Patient Instructions Printed Discharge Instructions: DI for High Blood Pressure, How to Monitor Your Blood Pressure at Home Additional Instructions: Take metoprolol 50 mg twice a day. Make an appointment for your doctor within the next 7 days. Return to emergency department for chest pain, shortness of breath, headaches, dizziness or for any other concerns. - Post Discharge Activity
[2018-08-26] MEDS ORDERED: METOPROLOL TARTRATE 50 MG TABLET (FP) PO ONE (20:02)
[2018-08-26] MEDS ORDERED: METOPROLOL TARTRATE 5 MG/5 ML VIAL IVPUSH ONE (20:02)
[2018-08-26 20:27] VITALS: TEMP 97.2
[2018-08-26] MEDS ORDERED: METOPROLOL TARTRATE 50 MG TABLET (FP) ONE (20:31)
[2018-08-26] MEDS ORDERED: METOPROLOL TARTRATE 5 MG/5 ML VIAL ONE (20:31)
[2018-08-26 20:36] VITALS: BP 150/99
[2018-08-27 00:24] VITALS: PULSE 101
--- NOTE | 2018-08-27 11:30 | EKG ---
Test Reason : Blood Pressure : / mmHG Vent. Rate : 104 BPM Atrial Rate : 104 BPM P-R Int : 162 ms QRS Dur : 084 ms QT Int : 330 ms P-R-T Axes : 060 025 049 degrees QTc Int : 433 ms SINUS TACHYCARDIA OTHERWISE NORMAL ECG WHEN COMPARED WITH ECG OF 07-MAY-2016 01:54, VENT. RATE HAS INCREASED BY [address] NO LONGER ELEVATED IN LATERAL LEADS Confirmed by DEA CANTRELL, CRISS ([id number]) on 08/27/2018 11:30:17 AM Referred By: Confirmed By:CRISS MALIN MD
== END 2018-08-26 22:58 | disposition home or self-care (01) ==
LOC: JER 15:23
PROC: 3E033GC Introduction of Other Therapeutic Substance into Peripheral Vein, Percutaneous Approach (ICD-10-PCS; principal; 2018-08-26)
DX: I10 Essential (primary) hypertension (principal); M25.512 Pain in left shoulder
CPT/HCPCS: 36415; 71046-TC-FY; 73030-TC-LT-FY; 80048; 84484; 85025; 93005; 93010; 99284-25

== ENCOUNTER 2018-10-19 05:44 | Emergency (ER) | payer OTHER ==
[2018-10-19 06:16] VITALS: BMI 34.3
--- NOTE | 2018-10-19 07:05 | PDOC ---
History of Present Illness - General Chief Complaint: Pain, Acute Stated Complaint: ABDOMINAL PAIN Time Seen by Provider: 10/19/18 07:03 History Source: Patient Exam Limitations: No Limitations - History of Present Illness Initial Comments: 58 yo M w a pmh of multiple kidney stones on both sides s/p lithotripsy, asthma , hypertension, and diabetes presents to the ER with excruciating left flank pain which radiates to the LLQ in the abdomen as well as the groin. He rates the pain as 10/10 in intensity. The pain is associated with nausea but no emesis. The patient states he believes this is a kidney stone as it has felt very similar to all of his kidney stones. He denies dysuria, frequency, urgency or hematuria. He denies any fevers, chills, infections, chest pain, SOB, difficulty breathing , headache, blurry vision, diarrhea or constipation. PCP: Ken Rivera Urologist: Dr. Rivera PSH: Right rotator cuff surgery, multiple lithotripsy Allergies: NKA, NKDA Social Hx: Denies smoking, drinking or other substance usage. Past History - Past Medical History Allergies/Adverse Reactions: Allergies Allergy/AdvReac Type Severity Reaction Status Date / Time No Known Allergies Allergy Verified 08/26/18 15:46 Home Medications: Ambulatory Orders metFORMIN HCL [Metformin HCl] 1,000 mg PO DAILY 08/13/15 Albuterol 0.083% Nebulizer Nasreen [Ventolin 0.083% Nebulizer Soln -] 1 neb NEB Q4H PRN #10 vial 05/02/16 Fluticasone/Salmeterol [Advair 250-50 Diskus] 1 unit IN DAILY 12/11/16 Tamsulosin HCl [Flomax] 0.4 mg PO DAILY 12/11/16 Acetaminophen [Tylenol .Regular Strength -] 650 mg PO Q4H PRN tablet 11/04/17 Metoprolol Tartrate [Lopressor] 50 mg PO BID #30 tablet 08/26/18 Pregabalin [Lyrica] 100 mg PO BID 10/19/18 Tamsulosin HCl 0.4 mg PO DAILY 5 Days #5 cap.er.24h 10/19/18 Anemia: No Asthma: Yes Cancer: Yes Cardiac Disorders: Yes (tachycardia run out of metoprolol 1 week ago) COPD: No CHF: No Diabetes: Yes Disorders: Yes (BPH) HTN: Yes Kidney Stones: Yes - Surgical History Orthopedic Surgery: Yes (Torn Right Rotator Cuff, tendon and muscle repair) - Immunization History Immunization Up to Date: Yes - Suicide/Smoking/Psychosocial Hx Smoking Status: No Smoking History: Never smoked Years of Tobacco Use: 0 Have you smoked in the past 12 months: No Number of Cigarettes Smoked Daily: 0 Cigars Per Day: 0 Hx Alcohol Use: No Drug/Substance Use Hx: No Substance Use Type: None Hx Substance Use Treatment: No Review of Systems - Review of Systems Able to Perform ROS?: Yes Comments:: CONSTITUTIONAL: Absent: fever, no chills, no fatigue EYES: Absent: visual changes ENT: Absent: ear pain, no sore throat CARDIOVASCULAR: Absent: chest pain, no palpitations RESPIRATORY: Absent: cough, no SOB GI: Present: Abdominal pain, nausea Absent: no vomiting, no constipation, no diarrhea GENITOURINARY: Absent: dysuria, no frequency, no hematuria MUSKULOSKELETAL: Present: Back pain Absent: no arthralgia, no myalgia SKIN: Absent: rash NEURO: Absent: headache *Physical Exam - Vital Signs Last Vital Signs Temp Pulse Resp BP Pulse Ox 97.5 F L 95 H 18 151/80 99 10/19/18 06:14 10/19/18 06:14 10/19/18 06:14 10/19/18 06:14 10/19/18 06:14 - Physical Exam Comments: GENERAL: Lying on the bed writhing in pain. Well-nourished. HEENT: Normocephalic, atraumatic. PERRL, EOM intact. CARDIOVASCULAR: Normal S1, S2. Regular rate and rhythm. PULMONARY: No evidence of respiratory distress. Lungs clear to auscultation bilaterally. No wheezing, rales or rhonchi. ABDOMEN: There is significant CVA TTP L > R. Also TTP in the LLQ. EXTREMITIES: Normal ROM in all four extremities. No gross deformities. SKIN: Warm, dry. No rash NEUROLOGICAL: No focal neurological deficits. Moderate Sedation - Procedure Monitoring Vital Signs: Procedure Monitoring Vital Signs Temperature 97.5 F L 10/19/18 06:14 Pulse Rate 95 H 10/19/18 06:14 Respiratory Rate 18 10/19/18 06:14 Blood Pressure 151/80 02/12/19 06:14 O2 Sat by Pulse Oximetry (%) 99 10/19/18 06:14 ED Treatment Course - LABORATORY CBC & Chemistry Diagram: 10/19/18 08:15 10/19/18 08:15 Medical Decision Making - Medical Decision Making 58 yo M w a pmh of multiple kidney stones on both sides s/p lithotripsy, asthma , hypertension, and diabetes presents to the ER with excruciating left flank pain which radiates to the LLQ in the abdomen as well as the groin. He rates the pain as 10/10 in intensity. The pain is associated with nausea but no emesis. The patient states he believes this is a kidney stone as it has felt very similar to all of his kidney stones. He denies dysuria, frequency, urgency or hematuria. - VSS DDx IBNLT: Kidney stones, obstructing stones, UTI/pylo, AAA, MSK back pain. Plan: Labs, urine, EKG, Spiral CT, IV hydration, analgesia, zofran, re-assess. Urine shows blood suggestive of kidney stones. - Cr elevated to 1.6 CT results: Moderate left hydronephrosis with a 3 mm stone in the distal ureter and a 2 mm stone at the left UVJ. The likely source for this patient's stones is renal in origin. - Will DC with analgesia and urology FU. - Sending tamsulosin to his pharmacy. *DC/Admit/Observation/Transfer Diagnosis at time of Disposition: Kidney stones - Discharge Dispostion Disposition: HOME Condition at time of disposition: Improved Decision to Admit order: No - Referrals Referrals: Ken Rivera MD [Primary Care Provider] - Dhaval Rivera MD [Staff Physician] - - Patient Instructions Printed Discharge Instructions: Kidney Stones -- Adult, Kidney Stones ( Alternative Therapy), DI for Extracorporeal Shock Wave Lithotripsy Additional Instructions: You came into the ER with left flank and abdominal pain. We gave you some IV hydration and pain meds which made you feel better. The cat scan showed that you have kidney stones. Drink plenty of fluids and take ibuprofen/motrin/ tylenol as needed for pain control. - We sent a medication to your pharmacy to help you pass the stones. Please make sure to go and pick it up. Please call your urologist to schedule an appointment in the next 48 to 72 hours. Please also schedule a follow up appointment with your primary care doctor in the next 3 to 5 days to make sure you are getting better and being taken care of. Come back to the ER if your pain worsens, you start vomiting, or have any other new or worsening concerns. Thank you for coming to the [facility] ER. We hope you feel better soon! Print Language: CAP[place] VERDEAN - Post Discharge Activity
[2018-10-19] MEDS ORDERED: KETOROLAC TROMETHAMINE 30 MG/1 ML VIAL IVPUSH ONE (07:10)
[2018-10-19] MEDS ORDERED: SODIUM CHLORIDE 1,000 ML IV STA (07:10)
[2018-10-19] MEDS ORDERED: ONDANSETRON 4 MG/2 ML VIAL IVPUSH ONE (07:11)
[2018-10-19] MEDS ORDERED: ONDANSETRON 4 MG/2 ML VIAL ONE (08:04)
[2018-10-19] MEDS ORDERED: KETOROLAC TROMETHAMINE 30 MG/1 ML VIAL ONE (08:04)
[2018-10-19 08:35] LABS: BASO % 0.5 % (0-2.0); EOS % 1.2 % (0-4.5); HEMATOCRIT 46.1 % (35.4-49); HEMOGLOBIN 15.8 GM/dL (11.7-16.9); LYMPH % 13.8 % (8-40); MCH 30.3 pg (25.7-33.7); MCHC 34.3 g/dl (32.0-35.9); MEAN CELL VOLUME 88.2 fl (80-96); MEAN PLT VOLUME 8.2 fl (7.5-11.1); MONO % 4.9 % (3.8-10.2); NEUT % 79.6 % (42.8-82.8); PLATELET COUNT 289 K/MM3 (134-434); RBC 5.22 M/mm3 (4.00-5.60); WHITE BLOOD COUNT 11.6 K/mm3 (4.0-10.0)
[2018-10-19 08:58] LABS: URINE APPEARANCE CLEAR; URINE BILIRUBIN NEGATIVE (<2.0 mg/dL); URINE COLOR YELLOW; URINE GLUCOSE (UA) NEGATIVE (NEGATIVE); URINE KETONE NEGATIVE (NEGATIVE); URINE LEUK ESTERASE NEGATIVE (NEGATIVE); URINE NITRITE NEGATIVE (NEGATIVE); URINE PROTEIN NEGATIVE (NEGATIVE); URINE UROBILINOGEN NEGATIVE mg/dL (0.2-1.0)
[2018-10-19 09:02] LABS: ALBUMIN 3.7 g/dl (3.4-5.0); ALK PHOS 112 U/L (45-117); ANION GAP 6 MMOL/L (8-16); BLOOD UREA NITROGEN 18 mg/dL (7-18); CALCIUM 8.9 mg/dL (8.5-10.1); CHLORIDE 100 mmol/L (98-107); CO2 31 mmol/L (21-32); CREATININE 1.6 mg/dL (0.55-1.3); GLUCOSE,RANDOM 179 mg/dL (74-106); LIPASE 264 U/L (73-393); POTASSIUM 4.9 mmol/L (3.5-5.1); SGOT/AST 20 U/L (15-37); SGPT/ALT 38 U/L (13-61); SODIUM 136 mmol/L (136-145); TOT PROT 7.5 g/dl (6.4-8.2)
--- NOTE | 2018-10-19 09:14 | PDOC ---
Attending Attestation - Resident Resident Name: Shoaib Jeffrey - ED Attending Attestation I have performed the following: I have examined & evaluated the patient, The case was reviewed & discussed with the resident, I agree w/resident's findings & plan - HPI HPI: 10/19/18 09:11 58-year-old male with history of nephrolithiasis presents with left-sided flank/ abdominal pain since around 11 PM last night, initially associated with some constipation then loose nonbloody diarrhea. Dark urine but no painful urination , the pain is sharp and persistent especially since 3 AM, similar to past renal colic. No fevers or chills. Has required lithotripsy in the past with Dr. Rivera. - Physicial Exam PE: 10/19/18 09:12 Afebrile Well-appearing Heart is regular, lungs are clear Abdomen is protuberant but soft and nondistended, tender in the lateral abdomen most prominent in the left CVA region No rash Bedside ultrasound technically difficult due to bowel gas - Medical Decision Making 10/19/18 09:13 58-year-old male with history of nephrolithiasis presents with left flank/left abdominal pain since last night, CVA tenderness. Presentation seems most consistent with renal colic, rule out underlying GI etiology given the bowel complaints. Labs, urinalysis CT of the abdomen and pelvis Pain control Reassess Heart Score/ECG Review #1 ECG reviewed & interpreted by me at: 09:42 General ECG Interpretation: Sinus Rhythm, Normal Rate (76), Normal Intervals ( qtc 425), No acute ischemic changes
[2018-10-19 09:16] LABS: URINE BACTERIA RARE /hpf (NONE SEEN); URINE HYALINE CAST 3 /lpf; URINE MUCUS RARE
[2018-10-19 10:14] VITALS: BP 114/68; PULSE 78; TEMP 98.2
--- NOTE | 2018-10-19 16:26 | EKG ---
Test Reason : Blood Pressure : / mmHG Vent. Rate : 076 BPM Atrial Rate : 076 BPM P-R Int : 160 ms QRS Dur : 080 ms QT Int : 378 ms P-R-T Axes : 051 020 030 degrees QTc Int : 425 ms NORMAL SINUS RHYTHM NORMAL ECG WHEN COMPARED WITH ECG OF 26-AUG-2018 15:47, NO SIGNIFICANT CHANGE WAS FOUND Confirmed by Ishmael Mullins ([id number]) on 10/19/2018 4:26:12 PM Referred By: Confirmed By:Ishmael Mullins
== END 2018-10-19 10:14 | disposition home or self-care (01) ==
LOC: JER 05:44
PROC: 3E033GC Introduction of Other Therapeutic Substance into Peripheral Vein, Percutaneous Approach (ICD-10-PCS; principal; 2018-10-19)
PROC: 3E0333Z Introduction of Anti-inflammatory into Peripheral Vein, Percutaneous Approach (ICD-10-PCS; 2018-10-19)
DX: N13.2 Hydronephrosis with renal and ureteral calculous obstruction (principal); Z87.442 Personal history of urinary calculi; I10 Essential (primary) hypertension; E11.9 Type 2 diabetes mellitus without complications; Z79.4 Long term (current) use of insulin; J45.909 Unspecified asthma, uncomplicated; N40.0 Benign prostatic hyperplasia without lower urinary tract symptoms
CPT/HCPCS: 36415; 74176; 80053; 81003; 81015; 83690; 85025; 93005; 93010; 96374; 96375; 99283-25; J7030

== ENCOUNTER 2019-01-20 10:57 | Emergency (ER) | payer OTHER ==
[2019-01-20 11:23] VITALS: BP 138/75; PULSE 90; TEMP 97.9; BMI 34.3
[2019-01-20] MEDS ORDERED: IBUPROFEN 400 MG TABLET (FP) PO ONE ×2 (12:19→12:42)
--- NOTE | 2019-01-20 12:19 | PDOC ---
History of Present Illness - General Chief Complaint: Pain, Acute Stated Complaint: PAIN Time Seen by Provider: 01/20/19 11:16 History Source: Patient Exam Limitations: No Limitations Past History - Travel Traveled outside of the country in the last 30 days: No Close contact w/someone who was outside of country & ill: No - Past Medical History Allergies/Adverse Reactions: Allergies Allergy/AdvReac Type Severity Reaction Status Date / Time No Known Allergies Allergy Verified 08/26/18 15:46 Home Medications: Ambulatory Orders metFORMIN HCL [Metformin HCl] 1,000 mg PO DAILY 08/13/15 Albuterol 0.083% Nebulizer Nasreen [Ventolin 0.083% Nebulizer Soln -] 1 neb NEB Q4H PRN #10 vial 05/02/16 Fluticasone/Salmeterol [Advair 250-50 Diskus] 1 unit IN DAILY 12/11/16 Tamsulosin HCl [Flomax] 0.4 mg PO DAILY 12/11/16 Acetaminophen [Tylenol .Regular Strength -] 650 mg PO Q4H PRN tablet 11/04/17 Metoprolol Tartrate [Lopressor] 50 mg PO BID #30 tablet 08/26/18 Pregabalin [Lyrica] 100 mg PO BID 10/19/18 Ibuprofen 600 mg PO Q6H #30 tablet 01/20/19 Anemia: No Asthma: Yes Cancer: Yes Cardiac Disorders: Yes (tachycardia run out of metoprolol 1 week ago) COPD: No CHF: No Diabetes: Yes Disorders: Yes (BPH) HTN: Yes Kidney Stones: Yes - Surgical History Orthopedic Surgery: Yes (Torn Right Rotator Cuff, tendon and muscle repair) - Immunization History Immunization Up to Date: Yes - Suicide/Smoking/Psychosocial Hx Smoking Status: No Smoking History: Never smoked Years of Tobacco Use: 0 Have you smoked in the past 12 months: No Number of Cigarettes Smoked Daily: 0 Cigars Per Day: 0 Information on smoking cessation initiated: No Hx Alcohol Use: No Drug/Substance Use Hx: No Substance Use Type: None Hx Substance Use Treatment: No Review of Systems - Review of Systems Able to Perform ROS?: Yes Comments:: 01/20/19 15:20 CONSTITUTIONAL: Absent: fever, chills, diaphoresis, generalized weakness, malaise, loss of appetite CARDIOVASCULAR: Absent: chest pain, loss of consciousness, palpitations, irregular heart rate, peripheral edema MUSCULOSKELETAL: Absent: myalgia, arthralgia, joint swelling SKIN: Present: L shoulder pain Absent: rash, itching, pallor NEUROLOGIC: Absent: headache, focal weakness or paresthesias, dizziness, unsteady gait, seizure, mental status changes, bladder or bowel incontinence PSYCHIATRIC: Absent: anxiety, depression, suicidal or homicidal ideation, hallucinations. Is the patient limited Pashto proficient: No *Physical Exam - Vital Signs Last Vital Signs Temp Pulse Resp BP Pulse Ox 97.9 F 90 16 138/75 97 01/20/19 11:11 01/20/19 11:11 01/20/19 11:11 01/20/19 11:11 01/20/19 11:11 - Physical Exam Comments: 01/20/19 15:21 GENERAL: The patient is awake, alert, and fully oriented, in no acute distress. HEAD: Normal with no signs of trauma. EYES: Pupils equal, round and reactive to light, extraocular movements intact, sclera anicteric, conjunctiva clear. EXTREMITIES: TTP of the L GH joint. (+) drop arm test and empty can test on the L. Decreased ROM in all directions of the L shoulder d/t pain. Normal range of motion at all other joints, no edema. NEUROLOGICAL: Normal speech, normal gait. PSYCH: Normal mood, normal affect. SKIN: Warm, Dry, normal turgor, no rashes or lesions noted. Medical Decision Making - Medical Decision Making 01/20/19 15:22 the patient is a 58-year-old male with past medical history of hypertension, hyperlipidemia, COPD, who presents to the emergency department today with left arm pain. The patient is left-hand dominant. He states that he was turning the wheel of his car suddenly the other day when he felt a pop in his shoulder. He states he is not able to lift his left arm due to pain. He has been taking Motrin with some relief of his symptoms. Denies fevers, chills, numbness and tingling to the affected extremity, weakness to the affected extremity, chest pain, shortness of breath and difficulty breathing. A/P: Left shoulder pain On exam pain is reproducible with movement, unlikely cardiac Positive drop arm test and empty can test on the left side. Concerning for possible rotator cuff pathology. X-ray shows no fractures or dislocations. Sling applied Discharge home with orthopedic follow-up. I discussed the physical exam findings, ancillary test results and final diagnoses with the patient. I answered all of the patient's questions. The patient was satisfied with the care received and felt comfortable with the discharge plan and treatment plan. The Patient agrees to follow up with the primary care physician/specialist within 24-72 hours. Return precautions were given. *DC/Admit/Observation/Transfer Diagnosis at time of Disposition: Shoulder pain, left Qualifiers: Chronicity: acute Qualified Code(s): M25.512 - Pain in left shoulder - Discharge Dispostion Disposition: HOME Condition at time of disposition: Stable Decision to Admit order: No - Prescriptions Prescriptions: Ibuprofen 600 mg PO Q6H #30 tablet - Referrals Referrals: Ken Rivera MD [Primary Care Provider] - Oni Weston MD [Staff Physician] - - Patient Instructions Printed Discharge Instructions: DI for Rotator Cuff Injury Additional Instructions: you were evaluated for your shoulder pain today. Her x-ray does not show any fractures or dislocations. I suspect to her rotator cuff. Please wear the sling for comfort. Take her arm out of the sling a few times a day to let the arm move. Follow up with orthopedics this week. A referral has been provided. He may take Motrin 600 mg every 6 hours for pain. Please take this medication with food. Return to the ER for worsening pain,, numbness and tingling to the arm, or if you have any changes in your symptoms. - Post Discharge Activity Forms/Work/School Notes: Back to Work
== END 2019-01-20 13:42 | disposition home or self-care (01) ==
LOC: JERFT 10:57
DX: M25.512 Pain in left shoulder (principal); X50.0XXA Overexertion from strenuous movement or load, initial encounter; X50.9XXA Other and unspecified overexertion or strenuous movements or postures, initial encounter; Y93.89 Activity, other specified; Y92.89 Other specified places as the place of occurrence of the external cause; Y99.8 Other external cause status; I10 Essential (primary) hypertension; E78.5 Hyperlipidemia, unspecified; J44.9 Chronic obstructive pulmonary disease, unspecified; N40.0 Benign prostatic hyperplasia without lower urinary tract symptoms; Z87.442 Personal history of urinary calculi
CPT/HCPCS: 73030-TC-LT-FY; 99281-25

== ENCOUNTER 2019-06-21 04:45 | Emergency (ER) | payer OTHER ==
[2019-06-21 05:23] VITALS: BMI 35.9
[2019-06-21] MEDS ORDERED: LACTATED RINGERS SOLUTION 1,000 ML/1,000 ML INFUS.BAG IV STA (05:25)
[2019-06-21] MEDS ORDERED: morphine CARPU-JECT 4 MG/1 ML DISP.SYRIN IVPUSH ONE (05:25)
--- NOTE | 2019-06-21 05:25 | PDOC ---
Attending Attestation - Resident Resident Name: Marianne Michelle - ED Attending Attestation I have performed the following: I have examined & evaluated the patient, The case was reviewed & discussed with the resident, I agree w/resident's findings & plan - HPI HPI: 06/21/19 05:47 see resident hpi - Physicial Exam PE: 06/21/19 05:47 agree with resident exam - Medical Decision Making 06/21/19 05:47 59-year-old male with left flank pain and history of multiple renal stones Plan for labs, spiral CT Morphine for pain and IV fluids, pending CT results Urological consultation is needed
--- NOTE | 2019-06-21 05:32 | PDOC ---
History of Present Illness - General Chief Complaint: Pain, Acute Stated Complaint: R/O KIDNEY STONES Time Seen by Provider: 06/21/19 05:16 - History of Present Illness Initial Comments: 06/21/19 05:27 59 yo M PMH HTN, HLD, T2DM, COPD, recurrent kidney stones, presenting with L flank pain. States that it began around 2300, sharp, worsening over time, radiating from L back to L periumbilical region, unalleviated with Advil, feels identical to prior kidney stones. Denies N/V or fevers/chills at home. Further denies CP, SOB, constipation/diarrhea, TYSON. Past History - Past Medical History Allergies/Adverse Reactions: Allergies Allergy/AdvReac Type Severity Reaction Status Date / Time No Known Allergies Allergy Verified 06/21/19 05:22 Home Medications: Ambulatory Orders metFORMIN HCL [Metformin HCl] 1,000 mg PO DAILY 08/13/15 Albuterol 0.083% Nebulizer Nasreen [Ventolin 0.083% Nebulizer Soln -] 1 neb NEB Q4H PRN #10 vial 05/02/16 Fluticasone/Salmeterol [Advair 250-50 Diskus] 1 unit IN DAILY 12/11/16 Tamsulosin HCl [Flomax] 0.4 mg PO DAILY 12/11/16 Acetaminophen [Tylenol .Regular Strength -] 650 mg PO Q4H PRN tablet 11/04/17 Metoprolol Tartrate [Lopressor] 50 mg PO BID #30 tablet 08/26/18 Pregabalin [Lyrica] 100 mg PO BID 10/19/18 Ibuprofen 600 mg PO Q6H #30 tablet 01/20/19 Naproxen Sodium 550 mg PO BID PRN 7 Days #14 tablet 06/21/19 Oxycodone HCl/Acetaminophen [Percocet 5-325 mg Tablet] 1 - 2 tab PO TID PRN #10 tab MDD 6 tabs 06/21/19 Tamsulosin HCl [Flomax -] 0.4 mg PO DAILY 30 Days #30 cap.er.24h 06/21/19 Sulfamethoxazole/Trimethoprim [Bactrim Ds -] 1 tab PO BID #14 tablet 06/23/19 Anemia: No Asthma: Yes Cancer: Yes Cardiac Disorders: Yes (tachycardia run out of metoprolol 1 week ago) COPD: No CHF: No Diabetes: Yes Disorders: Yes (BPH) HTN: Yes Kidney Stones: Yes - Surgical History Orthopedic Surgery: Yes (Torn Right Rotator Cuff, tendon and muscle repair) - Immunization History Immunization Up to Date: Yes - Psycho Social/Smoking Cessation Hx Smoking Status: No Smoking History: Never smoked Years of Tobacco Use: 0 Have you smoked in the past 12 months: No Number of Cigarettes Smoked Daily: 0 Cigars Per Day: 0 Hx Alcohol Use: No Drug/Substance Use Hx: No Substance Use Type: None Hx Substance Use Treatment: No *Physical Exam - Vital Signs Last Vital Signs Temp Pulse Resp BP Pulse Ox 97.3 F L 88 19 159/100 99 06/21/19 04:50 06/21/19 04:50 06/21/19 04:50 06/21/19 04:50 06/21/19 04:50 ED Treatment Course - LABORATORY CBC & Chemistry Diagram: 06/21/19 05:37 06/21/19 05:37 - ADDITIONAL ORDERS Additional order review: Laboratory Results 06/21/19 05:03 POC Glucometer 178 06/21/19 05:03 POC Glucometer 178 - RADIOLOGY Radiology Studies Ordered: Category Date Time Status SPIRAL- RENAL-STONE CT [CT] Stat CT Scan 06/21/19 05:26 Ordered Medical Decision Making - Medical Decision Making 06/21/19 05:30 Concern for L kidney stone. - CBC, CMP, lipase - EKG, trop - UA/UC - spiral CT - PT/INR and PTT - 1L LR, morphine 4mg - ctm 06/21/19 07:[address] scan. Patient endorsed to Dr. Beatty, [place], [place] home with urology followup. Give toradol for pain. Discharge - Discharge Information Problems reviewed: Yes Clinical Impression/Diagnosis: Nephrolithiasis Condition: Guarded Disposition: HOME - Additional Discharge Information Prescriptions: Naproxen Sodium 550 mg PO BID PRN 7 Days #14 tablet PRN Reason: Pain Level 4 - 6 Oxycodone HCl/Acetaminophen [Percocet 5-325 mg Tablet] 1 - 2 tab PO TID PRN #10 tab MDD 6 tabs PRN Reason: Pain Sulfamethoxazole/Trimethoprim [Bactrim Ds -] 1 tab PO BID #14 tablet Tamsulosin HCl [Flomax -] 0.4 mg PO DAILY 30 Days #30 cap.er.24h - Follow up/Referral Referrals: Ken Rivera MD [Primary Care Provider] - Dhaval Rivera MD [Staff Physician] - - Patient Discharge Instructions Additional Instructions: You came to the ER because of pain in you left flank. While you were here, we did blood tests, as well as a scan of your abdomen (CT scan). The scan showed that you have a small stone in your urinary system on the left side, which is causing you pain. You have been given medicine to manage your pain, and you will now be discharged. You MUST make an appointment with your urologist, Dr. Rivera, for management of your stone. Medication: - Please take Naproxen 550mg twice a day. You must not take more than 2 pills ( 1100mg) in 24 hours. - Please take Percocet 1-2 tablets if you feel your pain is not being managed by Naproxen, no more than 3 times day. Follow up: - Please make an appointment with your Urologist Dr. Dhaval Rivera within 1 week. - Please make an appointment to see your PCP Dr. Ken Rivera within 1 week. Additional Information: - Please return to the ER if your pain does not improve, if it worsens, or your other symptoms worsen. - Post Discharge Activity
[2019-06-21] MEDS ORDERED: morphine SULFATE 4 MG/ML VIAL ONE (05:46)
[2019-06-21 05:59] LABS: BASO % 0.6 % (0-2.0); EOS % 2.5 % (0-4.5); HEMATOCRIT 43.7 % (35.4-49); LYMPH % 20.5 % (8-40); MCH 29.6 pg (25.7-33.7); MCHC 34.4 g/dl (32.0-35.9); MEAN CELL VOLUME 85.9 fl (80-96); MEAN PLT VOLUME 8.2 fl (7.5-11.1); MONO % 6.1 % (3.8-10.2); NEUT % 70.3 % (42.8-82.8); PLATELET COUNT 287 K/MM3 (134-434); RBC 5.09 M/mm3 (4.00-5.60); RDW 13.6 % (11.9-15.9); WHITE BLOOD COUNT 10.8 K/mm3 (4.0-10.0)
[2019-06-21 06:31] LABS: ALBUMIN 3.9 g/dl (3.4-5.0); BILIRUBIN,TOTAL 0.4 mg/dL (0.2-1); BLOOD UREA NITROGEN 20.9 mg/dL (7-18); CALCIUM 9.2 mg/dL (8.5-10.1); CREATININE 1.3 mg/dL (0.55-1.3); MAGNESIUM 1.7 mg/dL (1.8-2.4); PHOSPHOROUS 2.7 mg/dL (2.5-4.9); POTASSIUM 4.3 mmol/L (3.5-5.1); TOT PROT 7.4 g/dl (6.4-8.2)
[2019-06-21 06:45] LABS: INR 1.04 (0.83-1.09); PROTHROMBIN TIME (PATIENT) 12.3 SEC (9.7-13.0)
[2019-06-21 06:47] LABS: ACTIVATED PTT 32.6 SECONDS (25.2-36.5)
[2019-06-21 07:20] LABS: URINE APPEARANCE CLEAR; URINE BILIRUBIN NEGATIVE (NEGATIVE); URINE COLOR YELLOW; URINE GLUCOSE (UA) 2+ (NEGATIVE); URINE KETONE NEGATIVE (NEGATIVE); URINE LEUK ESTERASE NEGATIVE (NEGATIVE); URINE NITRITE NEGATIVE (NEGATIVE); URINE PROTEIN TRACE (NEGATIVE); URINE UROBILINOGEN 0.2 mg/dL (0.2-1.0)
--- NOTE | 2019-06-21 07:32 | PDOC ---
*Physical Exam - Vital Signs Last Vital Signs Temp Pulse Resp BP Pulse Ox 97.3 F L 88 19 159/100 99 06/21/19 04:50 06/21/19 04:50 06/21/19 04:50 06/21/19 04:50 06/21/19 04:50 ED Treatment Course - LABORATORY CBC & Chemistry Diagram: 06/21/19 05:37 06/21/19 05:37 - ADDITIONAL ORDERS Additional order review: Laboratory Results 06/21/19 06/21/19 06/21/19 05:37 05:37 05:37 PT with INR 12.30 INR 1.04 PTT (Actin FS) 32.6 Sodium 136 Potassium 4.3 Chloride 98 Carbon Dioxide 29 Anion Gap 8 BUN 20.9 H Creatinine 1.3 Est GFR (CKD-EPI)AfAm 68.25 Est GFR (CKD-EPI)NonAf 58.89 POC Glucometer Random Glucose 187 H Calcium 9.2 Phosphorus 2.7 Magnesium 1.7 L Total Bilirubin 0.4 AST 16 ALT 31 Alkaline Phosphatase 101 Troponin I < 0.02 Total Protein 7.4 Albumin 3.9 Lipase 264 Urine Color Urine Appearance Urine pH Ur Specific [place] Urine Protein Urine Glucose (UA) Urine Ketones Urine Blood Urine Nitrite Urine Bilirubin Urine Urobilinogen Ur Leukocyte Esterase 06/21/19 06/21/19 05:31 05:03 PT with INR INR PTT (Actin FS) Sodium Potassium Chloride Carbon Dioxide Anion Gap BUN Creatinine Est GFR (CKD-EPI)AfAm Est GFR (CKD-EPI)NonAf POC Glucometer 178 Random Glucose Calcium Phosphorus Magnesium Total Bilirubin AST ALT Alkaline Phosphatase Troponin I Total Protein Albumin Lipase Urine Color Yellow Urine Appearance Clear Urine pH 5.0 Ur Specific [place] 1.024 Urine Protein Trace Urine Glucose (UA) 2+ H Urine Ketones Negative Urine Blood Negative Urine Nitrite Negative Urine Bilirubin Negative Urine Urobilinogen 0.2 Ur Leukocyte Esterase Negative 06/21/19 06/21/19 05:37 05:03 RBC 5.09 MCV 85.9 MCHC 34.4 RDW 13.6 MPV 8.2 Neutrophils % 70.3 Lymphocytes % 20.5 D Monocytes % 6.1 Eosinophils % 2.5 D Basophils % 0.6 POC Glucometer 178 - Medications Given in the ED: ED Medications Discontinued Medications Generic Name Dose Route Start Last Admin Trade Name Freq PRN Reason Stop Dose Admin Lactated Ringer's 1,000 ml in 1,000 mls @ 1,000 mls/hr 06/21/19 05:25 06:03 Lactated Ringers Solution IV 06/21/19 06:24 1,000 mls/hr ONCE STA Administration Morphine Sulfate 4 mg 06/21/19 05:25 06/21/19 06:03 Morphine Injection - IVPUSH 06/21/19 05:26 4 mg ONCE ONE Administration Medical Decision Making - Medical Decision Making 06/21/19 07:31 - Sign out received from Dr. Michelle. - UA shows 2+ glucose, no other abnormalities - Will D/C for F/U with urologist 06/21/19 08:03 - Pt re-assessed. Received Morphine at 6AM, rates pain 04/16 - Will give 15mg Toradol IV - D/C Discharge - Discharge Information Problems reviewed: Yes Clinical Impression/Diagnosis: Nephrolithiasis Condition: Guarded - Admission No - Additional Discharge Information Prescriptions: Naproxen Sodium 550 mg PO BID PRN 7 Days #14 tablet PRN Reason: Pain Level 4 - 6 Oxycodone HCl/Acetaminophen [Percocet 5-325 mg Tablet] 1 - 2 tab PO TID PRN #10 tab MDD 6 tabs PRN Reason: Pain - Follow up/Referral Referrals: Ken Rivera MD [Primary Care Provider] - Dhaval Rivera MD [Staff Physician] - - Patient Discharge Instructions Additional Instructions: You came to the ER because of pain in you left flank. While you were here, we did blood tests, as well as a scan of your abdomen (CT scan). The scan showed that you have a small stone in your urinary system on the left side, which is causing you pain. You have been given medicine to manage your pain, and you will now be discharged. You MUST make an appointment with your urologist, Dr. Rivera, for management of your stone. Medication: - Please take Naproxen 550mg twice a day. You must not take more than 2 pills ( 1100mg) in 24 hours. - Please take Percocet 1-2 tablets if you feel your pain is not being managed by Naproxen, no more than 3 times day. Follow up: - Please make an appointment with your Urologist Dr. Dhaval Rivera within 1 week. - Please make an appointment to see your PCP Dr. Ken Rivera within 1 week. Additional Information: - Please return to the ER if your pain does not improve, if it worsens, or your other symptoms worsen. - Post Discharge Activity
[2019-06-21] MEDS ORDERED: KETOROLAC TROMETHAMINE 15 MG/ML VIAL IVPUSH ONE (07:52)
[2019-06-21] MEDS ORDERED: KETOROLAC TROMETHAMINE 15 MG/ML VIAL ONE (07:59)
[2019-06-21 08:05] VITALS: BP 134/89; PULSE 80; TEMP 98
--- NOTE | 2019-06-21 12:51 | EKG ---
Test Reason : Blood Pressure : / mmHG Vent. Rate : 082 BPM Atrial Rate : 082 BPM P-R Int : 162 ms QRS Dur : 080 ms QT Int : 366 ms P-R-T Axes : 050 033 052 degrees QTc Int : 427 ms NORMAL SINUS RHYTHM NORMAL ECG WHEN COMPARED WITH ECG OF 19-OCT-2018 09:42, NO SIGNIFICANT CHANGE WAS FOUND Confirmed by Elliott Dent MD ([id number]) on 06/21/2019 12:51:14 PM Referred By: Confirmed By:Elliott Dent MD
== END 2019-06-21 08:24 | disposition home or self-care (01) ==
LOC: JER 04:45
PROC: 3E033NZ Introduction of Analgesics, Hypnotics, Sedatives into Peripheral Vein, Percutaneous Approach (ICD-10-PCS; principal; 2019-06-21)
PROC: 3E0333Z Introduction of Anti-inflammatory into Peripheral Vein, Percutaneous Approach (ICD-10-PCS; 2019-06-21)
DX: N20.0 Calculus of kidney (principal); Z87.442 Personal history of urinary calculi; I10 Essential (primary) hypertension; E78.5 Hyperlipidemia, unspecified; E11.9 Type 2 diabetes mellitus without complications; Z79.84 Long term (current) use of oral hypoglycemic drugs; J44.9 Chronic obstructive pulmonary disease, unspecified; N40.0 Benign prostatic hyperplasia without lower urinary tract symptoms
CPT/HCPCS: 36415; 74176-TC; 80053; 81003; 82962; 83690; 83735; 84100; 84484; 85025; 85610; 85730; 87086; 87186; 93005; 93010; 96374; 96375; 99283-25

== ENCOUNTER 2019-11-02 08:36 | Emergency (ER) | payer OTHER ==
[2019-11-02 08:42] VITALS: TEMP 98.1; BMI 34.3
--- NOTE | 2019-11-02 08:45 | PDOC ---
History of Present Illness - General Chief Complaint: Cold Symptoms Stated Complaint: COLD SYMPTOMS Time Seen by Provider: 11/02/19 08:44 History Source: Patient Exam Limitations: No Limitations Past History - Travel Traveled outside of the country in the last 30 days: No Close contact w/someone who was outside of country & ill: No - Past Medical History Allergies/Adverse Reactions: Allergies Allergy/AdvReac Type Severity Reaction Status Date / Time No Known Allergies Allergy Verified 11/02/19 08:42 Home Medications: Ambulatory Orders metFORMIN HCL [Metformin HCl] 1,000 mg PO DAILY 08/13/15 Albuterol 0.083% Nebulizer Nasreen [Ventolin 0.083% Nebulizer Soln -] 1 neb NEB Q4H PRN #10 vial 05/02/16 Tamsulosin HCl [Flomax] 0.4 mg PO DAILY 12/11/16 Acetaminophen [Tylenol .Regular Strength -] 650 mg PO Q4H PRN tablet 11/04/17 Metoprolol Tartrate [Lopressor] 50 mg PO BID #30 tablet 08/26/18 Ibuprofen 600 mg PO Q6H #30 tablet 01/20/19 Naproxen Sodium 550 mg PO BID PRN 7 Days #14 tablet 06/21/19 Albuterol 0.083% Nebulizer Nasreen [Ventolin 0.083% Nebulizer Soln -] 1 neb NEB Q4H #40 vial 11/02/19 Guaifenesin AC [Robitussin AC] 10 ml PO Q8H #150 ud MDD 3 11/02/19 Methylprednisolone [Medrol Dose Franco] 4 mg PO ASDIR #21 tablet 11/02/19 Potassium Chloride 10 meq PO DAILY 11/02/19 Anemia: No Asthma: Yes Cancer: Yes Cardiac Disorders: Yes (tachycardia run out of metoprolol 1 week ago) COPD: No CHF: No Diabetes: Yes Disorders: Yes (BPH) HTN: Yes Kidney Stones: Yes - Surgical History Orthopedic Surgery: Yes (Torn Right Rotator Cuff, tendon and muscle repair) - Immunization History Immunization Up to Date: Yes - Psycho Social/Smoking Cessation Hx Smoking Status: No Smoking History: Never smoked Years of Tobacco Use: 0 Have you smoked in the past 12 months: No Number of Cigarettes Smoked Daily: 0 Cigars Per Day: 0 Information on smoking cessation initiated: No Hx Alcohol Use: No Drug/Substance Use Hx: No Substance Use Type: None Hx Substance Use Treatment: No Review of Systems - Review of Systems Able to Perform ROS?: Yes Comments:: 11/02/19 08:44 CONSTITUTIONAL: Absent: fever, chills, diaphoresis, generalized weakness, malaise, loss of appetite HEENT: Present: nasal congestion Absent: rhinorrhea, throat pain, throat swelling, difficulty swallowing, mouth swelling, ear pain, eye pain, visual Changes CARDIOVASCULAR: Absent: chest pain, loss of consciousness, palpitations, irregular heart rate, peripheral edema RESPIRATORY: Present: cough, shortness of breath, wheezing Absent: dyspnea with exertion, orthopnea, stridor, hemoptysis GASTROINTESTINAL: Absent: abdominal pain, abdominal distension, nausea, vomiting, diarrhea, constipation, melena, hematochezia MUSCULOSKELETAL: Absent: myalgia, arthralgia, joint swelling SKIN: Absent: rash, itching, pallor NEUROLOGIC: Absent: headache, focal weakness or paresthesias, dizziness, unsteady gait, seizure, mental status changes, bladder or bowel incontinence PSYCHIATRIC: Absent: anxiety, depression, suicidal or homicidal ideation, hallucinations. Is the patient limited [place]ian proficient: No *Physical Exam - Vital Signs Last Vital Signs Temp Pulse Resp BP Pulse Ox 98.1 F 105 H 19 149/77 97 11/02/19 08:39 11/02/19 08:39 11/02/19 08:39 11/02/19 08:39 11/02/19 08:39 - Physical Exam 11/02/19 08:45 GENERAL: Well developed, well nourished. Awake and alert. No acute distress. Speaking in full sentences. HEENT: Normocephalic, atraumatic. PERRLA, EOMI. No conjunctival pallor. Sclera are non- icteric. Moist mucous membranes. Oropharynx is clear. NECK: Supple. Full ROM. No lymphadenopathy. CARDIOVASCULAR: Regular rate and rhythm. No murmurs, rubs, or gallops. Distal pulses are 2+ and symmetric. PULMONARY: No evidence of respiratory distress. Lungs clear to auscultation bilaterally. Pt is unable to take a deep breath without coughing. No wheezing, rales or rhonchi. ABDOMINAL: Soft. Non-tender. Non-distended. No rebound or guarding. No organomegaly. Normoactive bowel sounds. SKIN: Warm and dry. Normal capillary refill. No rashes. No jaundice. NEUROLOGICAL: Alert, awake, appropriate. Cranial nerves 2-12 intact. No deficits to light touch and temperature in face, upper extremities and lower extremities. No motor deficits in the in face, upper extremities and lower extremities. Normoreflexic in the upper and lower extremities. Normal speech. Toes are down- going bilaterally. Gait is normal without ataxia. PSYCHIATRIC: Cooperative. Good eye contact. Appropriate mood and affect. Medical Decision Making - Medical Decision Making 11/02/19 08:55 Patient is a 59-year-old male with past medical history of asthma, non-insulin- dependent diabetes, presents to the ER with 3 days of cough and wheezing. He states he feels like his asthma is acting up. He states he is unable to take a deep breath without coughing. He admits to nasal congestion, postnasal drip, wheezing and shortness of breath. He has been using his nebulizer treatments at home with little relief of his symptoms. Denies fevers, chills, earache, sore throat, nausea, vomiting and diarrhea. A/P: Bronchitis/asthma exacerbation. On exam lungs are clear to auscultation bilaterally; however, patient is unable to take a deep breath without coughing. Wheezing may have dissipated as patient states he took a breathing treatment just prior to arrival. Will treat with DuoNeb's, Decadron and Robitussin in the emergency department. Chest x-ray ordered Reevaluate 11/02/19 10:21 X-ray shows no acute pathology. Patient symptoms have improved after 4 DuoNebs and Decadron. Lungs are still clear to auscultation bilaterally. Heart rate of 101, likely due to the DuoNeb treatments. Will discharge patient home at this time Instructed patient to follow-up with his primary care doctor this week. I discussed the physical exam findings, ancillary test results and final diagnoses with the patient. I answered all of the patient's questions. The patient was satisfied with the care received and felt comfortable with the discharge plan and treatment plan. The Patient agrees to follow up with the primary care physician/specialist within 24-72 hours. Return precautions were given. Discharge - Discharge Information Problems reviewed: Yes Clinical Impression/Diagnosis: Asthma Qualifiers: Asthma severity: mild Asthma persistence: intermittent Asthma complication type : with acute exacerbation Qualified Code(s): J45.21 - Mild intermittent asthma with (acute) exacerbation Condition: Stable Disposition: HOME - Admission No - Additional Discharge Information Prescriptions: Albuterol 0.083% Nebulizer Nasreen [Ventolin 0.083% Nebulizer Soln -] 1 neb NEB Q4H #40 vial Guaifenesin AC [Robitussin AC] 10 ml PO Q8H #150 ud MDD 3 Methylprednisolone [Medrol Dose Franco] 4 mg PO ASDIR #21 tablet - Follow up/Referral Referrals: Ken Rivera MD [Primary Care Provider] - - Patient Discharge Instructions Patient Printed Discharge Instructions: DI for Asthma -- Adult Additional Instructions: You were seen for your asthma today. Your x-ray did not show any pneumonia. Please take your albuterol nebulizer every 4 hours to help suppress the symptoms. Start taking the Medrol Dosepak (steroids) tomorrow. You received your first dose of steroids in the ER today. You may take the Robitussin with codeine every 8 hours as needed for cough. Do not drink alcohol or drive after taking this medication as it may make you drowsy. Please follow-up with your primary care doctor this week. Return to the ER for fevers, increased difficulty breathing, shortness of breath , abdominal pain, or if you have any changes in your symptoms. - Post Discharge Activity
[2019-11-02] MEDS ORDERED: guaiFENesin 200 MG/10 ML 10 ML UNIT-DOSE CUPS PO ONE (08:52)
[2019-11-02] MEDS ORDERED: ACETAMINOPHEN 325 MG TABLET (FP) PO ONE (08:52)
[2019-11-02] MEDS ORDERED: ALBUTEROL SO4 2.5/IPRATROPIUM 0.5 INH SOL 3 ML VIAL.NEB. NEB ONE (08:52)
[2019-11-02] MEDS ORDERED: DEXAMETHASONE LIQUID 0.5 MG/5 ML PO ONE (08:53)
[2019-11-02] MEDS: ALBUTEROL SO4 2.5/IPRATROPIUM 0.5 INH SOL 3 ML VIAL.NEB. NEB SCH ×4 (08:55→09:50)
[2019-11-02] MEDS ORDERED: guaiFENesin/D-METHORPHAN HB 10 ML UNIT-DOSE CUPS ONE (08:56)
[2019-11-02] MEDS ORDERED: ACETAMINOPHEN 500 MG TABLET (FP) ONE (08:56)
[2019-11-02] MEDS ORDERED: DEXAMETHASONE SOD PHOSPHATE 10 MG/1 ML VIAL ONE (08:56)
[2019-11-02 10:11] VITALS: BP 130/73; PULSE 101
== END 2019-11-02 10:23 | disposition home or self-care (01) ==
LOC: JERFT 08:36
PROC: 3E0F7GC Introduction of Other Therapeutic Substance into Respiratory Tract, Via Natural or Artificial Opening (ICD-10-PCS; principal; 2019-11-02)
DX: J45.21 Mild intermittent asthma with (acute) exacerbation (principal); I10 Essential (primary) hypertension; N20.0 Calculus of kidney; N40.0 Benign prostatic hyperplasia without lower urinary tract symptoms; I51.9 Heart disease, unspecified; Z85.9 Personal history of malignant neoplasm, unspecified
CPT/HCPCS: 71046-TC-FY; 94640; 99285-25

== ENCOUNTER 2020-08-15 05:35 | Day surgery (SDC) | payer OTHER ==
[2020-08-14 11:21] VITALS: BMI 34.8
[2020-08-15] MEDS ORDERED: PROPOFOL 20 ML ONE ×2 (07:26)
[2020-08-15] MEDS ORDERED: SUCCINYLCHOLINE CHLORIDE 200 MG/10 ML SYRINGE ONE (07:26)
[2020-08-15] MEDS ORDERED: MIDAZOLAM HCL 2 MG/2 ML SINGLE DOSE VIAL ONE ×3 (07:26→08:31)
[2020-08-15] MEDS ORDERED: DEXAMETHASONE SOD PHOSPHATE 4 MG/1 ML VIAL ONE (07:26)
[2020-08-15] MEDS ORDERED: BUPIVACAINE LIPOSOME/PF (EXPAREL) 266 MG/20 ML VIAL ONE (07:27)
[2020-08-15] MEDS ORDERED: ceFAZolin SODIUM 1 GM VIAL ONE (07:52)
[2020-08-15] MEDS ORDERED: ceFAZolin SODIUM 1 GM VIAL IVPB ONE (08:15)
[2020-08-15] MEDS ORDERED: oxyCODONE HCL 5 MG TABLET PO PRN (08:28)
[2020-08-15] MEDS ORDERED: ONDANSETRON 4 MG/2 ML VIAL IVPUSH PRN (08:28)
[2020-08-15] MEDS ORDERED: LACTATED RINGERS SOLUTION 1,000 ML IV SCH (08:30)
[2020-08-15 13:15] VITALS: BP 120/71; PULSE 77; TEMP 97
== END 2020-08-15 12:45 | disposition home or self-care (01) ==
LOC: JASU-SURG 05:35
PROVIDERS: ATTEND Orthopaedic Surgery
PROC: 0LU24JZ Supplement Left Shoulder Tendon with Synthetic Substitute, Percutaneous Endoscopic Approach (ICD-10-PCS; 2020-08-15)
PROC: 0RNK4ZZ Release Left Shoulder Joint, Percutaneous Endoscopic Approach (ICD-10-PCS; principal; 2020-08-15 08:00)
PROC: 0LQ24ZZ Repair Left Shoulder Tendon, Percutaneous Endoscopic Approach (ICD-10-PCS; 2020-08-15 08:00)
DX: M75.102 Unspecified rotator cuff tear or rupture of left shoulder, not specified as traumatic (principal); E11.9 Type 2 diabetes mellitus without complications; Z79.84 Long term (current) use of oral hypoglycemic drugs
CPT/HCPCS: 82962; 88304-TC; 94760

== ENCOUNTER 2020-12-31 14:08 | Emergency (ER) | payer OTHER ==
[2020-12-31 14:23] VITALS: BMI 36.0
[2020-12-31] MEDS ORDERED: SODIUM CHLORIDE 1,000 ML IV STA (15:12)
[2020-12-31] MEDS ORDERED: TAMSULOSIN HCL 0.4 MG CAP PO ONE (15:12)
[2020-12-31] MEDS ORDERED: KETOROLAC TROMETHAMINE 30 MG/1 ML VIAL IVPUSH ONE (15:12)
[2020-12-31] MEDS ORDERED: KETOROLAC TROMETHAMINE 30 MG/1 ML VIAL ONE (16:15)
[2020-12-31] MEDS ORDERED: TAMSULOSIN HCL 0.4 MG CAP ONE (16:15)
[2020-12-31 17:20] LABS: BASO % 1.6 % (0-2.0); EOS % 3.3 % (0-4.5); HEMATOCRIT 44.2 % (35.4-49); HEMOGLOBIN 15.3 GM/dL (11.7-16.9); LYMPH % 21.9 % (8-40); MCH 30.1 pg (25.7-33.7); MCHC 34.5 g/dl (32.0-35.9); MEAN CELL VOLUME 87.4 fl (80-96); MEAN PLT VOLUME 8.3 fl (7.5-11.1); MONO % 6.1 % (3.8-10.2); NEUT % 67.1 % (42.8-82.8); PLATELET COUNT 311 K/MM3 (134-434); RBC 5.06 M/mm3 (4.00-5.60); RDW 13.3 % (11.9-15.9)
[2020-12-31 17:37] LABS: CALCIUM 9.3 mg/dL (8.5-10.1)
[2020-12-31 17:38] LABS: BLOOD UREA NITROGEN 14.7 mg/dL (7-18)
[2020-12-31 17:41] LABS: CREATININE 1.2 mg/dL (0.55-1.3)
[2020-12-31 17:42] LABS: PH,URINE 5.5 (5.0-8.0); TOT PROT 8.1 g/dl (6.4-8.2); URINE APPEARANCE CLEAR; URINE BILIRUBIN NEGATIVE (NEGATIVE); URINE COLOR YELLOW; URINE GLUCOSE (UA) NEGATIVE (NEGATIVE); URINE KETONE NEGATIVE (NEGATIVE); URINE LEUK ESTERASE NEGATIVE (NEGATIVE); URINE NITRITE NEGATIVE (NEGATIVE); URINE PROTEIN NEGATIVE (NEGATIVE); URINE UROBILINOGEN 0.2 mg/dL (0.2-1.0)
[2020-12-31 17:48] LABS: BILIRUBIN,TOTAL 0.5 mg/dL (0.2-1)
[2020-12-31 21:56] VITALS: BP 129/82; PULSE 87; TEMP 98
== END 2020-12-31 21:53 | disposition home or self-care (01) ==
LOC: JER 14:08
PROC: 3E0333Z Introduction of Anti-inflammatory into Peripheral Vein, Percutaneous Approach (ICD-10-PCS; principal; 2020-12-31)
PROC: 3E0337Z Introduction of Electrolytic and Water Balance Substance into Peripheral Vein, Percutaneous Approach (ICD-10-PCS; 2020-12-31)
DX: N20.0 Calculus of kidney (principal)
CPT/HCPCS: 36415; 74176-TC; 80053; 81003; 85025; 87086; 99285-25

== ENCOUNTER 2021-02-16 23:19 | Emergency (ER) | payer OTHER ==
[2021-02-16 23:41] VITALS: BP 159/91; PULSE 90; TEMP 98.3; BMI 37.8
[2021-02-16] MEDS ORDERED: FLUORESCEIN NA 1 EA STRIP ONE (23:49)
[2021-02-17] MEDS ORDERED: GENTAMICIN SULFATE 0.3% OPHTHALMIC (EYE DROPS) 5ML BOTTLE OS ONE (00:01)
[2021-02-17] MEDS ORDERED: GENTAMICIN SULFATE 0.3% OPHTHALMIC (EYE DROPS) 5ML BOTTLE ONE (00:06)
== END 2021-02-17 00:36 | disposition home or self-care (01) ==
LOC: JER 23:19
DX: T15.02XA Foreign body in cornea, left eye, initial encounter (principal); H57.12 Ocular pain, left eye
CPT/HCPCS: 99283-25

== ENCOUNTER 2021-02-18 14:15 | Emergency (ER) | payer OTHER ==
[2021-02-18 14:29] VITALS: BMI 37.8
[2021-02-18] MEDS ORDERED: SODIUM CHLORIDE 0.9% 500 ML INFUS.BAG IV ONE (14:58)
[2021-02-18] MEDS ORDERED: ACETAMINOPHEN 1000 MG/100 ML VIAL (NON FORMULARY) IVPB ONE (14:58)
[2021-02-18] MEDS ORDERED: ACETAMINOPHEN INJECTION 100 ML IVPB ONE (15:21)
[2021-02-18 16:46] LABS: BASO % 0.6 % (0-2.0); EOS % 1.8 % (0-4.5); HEMATOCRIT 43.7 % (35.4-49); HEMOGLOBIN 14.9 GM/dL (11.7-16.9); LYMPH % 14.2 % (8-40); MCH 29.1 pg (25.7-33.7); MEAN CELL VOLUME 85.4 fl (80-96); MEAN PLT VOLUME 8.3 fl (7.5-11.1); MONO % 4.4 % (3.8-10.2); PLATELET COUNT 282 10^3/uL (134-434); RBC 5.12 M/mm3 (4.00-5.60); RDW 13.2 % (11.9-15.9); WHITE BLOOD COUNT 10.5 K/mm3 (4.0-10.0)
[2021-02-18 16:50] LABS: EPI CELLS 1 /uL (0-25.1); HYALINE CASTS 0 /uL (0-3.1); URINE APPEARANCE CLEAR; URINE BACTERIA 69 /uL (0-1359); URINE BILIRUBIN NEGATIVE (NEGATIVE); URINE COLOR YELLOW; URINE GLUCOSE (UA) 2+ (NEGATIVE); URINE KETONE NEGATIVE (NEGATIVE); URINE LEUK ESTERASE NEGATIVE (NEGATIVE); URINE NITRITE NEGATIVE (NEGATIVE); URINE PROTEIN NEGATIVE (NEGATIVE); URINE RBC 1 /uL (0-23.9); URINE UROBILINOGEN 0.2 mg/dL (0.2-1.0); URINE WBC 2 /uL (0-25.8)
[2021-02-18 16:52] LABS: INR 0.98 (0.83-1.09); PROTHROMBIN TIME (PATIENT) 11.9 SEC (9.7-13.0)
[2021-02-18 16:55] LABS: ACTIVATED PTT 32.8 SECONDS (25.2-36.5)
[2021-02-18 17:05] LABS: CALCIUM 9.5 mg/dL (8.5-10.1)
[2021-02-18 17:06] LABS: BLOOD UREA NITROGEN 12.9 mg/dL (7-18)
[2021-02-18 17:09] LABS: CREATININE 1.2 mg/dL (0.55-1.3)
[2021-02-18 17:10] LABS: BILIRUBIN,TOTAL 0.6 mg/dL (0.2-1)
[2021-02-18] MEDS ORDERED: KETOROLAC TROMETHAMINE 15 MG/ML VIAL IVPUSH ONE (18:39)
[2021-02-18] MEDS ORDERED: KETOROLAC TROMETHAMINE 15 MG/ML VIAL ONE (18:46)
[2021-02-18 20:17] VITALS: BP 140/86; PULSE 85; TEMP 98.3
== END 2021-02-18 20:46 | disposition home or self-care (01) ==
LOC: JER 14:15
PROC: 3E0333Z Introduction of Anti-inflammatory into Peripheral Vein, Percutaneous Approach (ICD-10-PCS; principal; 2021-02-18)
PROC: 3E0333Z Introduction of Anti-inflammatory into Peripheral Vein, Percutaneous Approach (ICD-10-PCS; 2021-02-18)
DX: R10.9 Unspecified abdominal pain (principal)
CPT/HCPCS: 36415; 74176-TC; 80053; 81003; 85025; 85610; 85730; 87086; 87186; 99284-25; J0131

== ENCOUNTER 2021-06-13 07:38 | Emergency (ER) | payer OTHER ==
[2021-06-13] MEDS ORDERED: ACETAMINOPHEN 1000 MG/100 ML VIAL (NON FORMULARY) IVPB ONE (08:29)
[2021-06-13] MEDS ORDERED: SODIUM CHLORIDE 0.9% 1000 ML INFUS.BAG IV ONE (08:29)
[2021-06-13 08:30] VITALS: BP 146/73; PULSE 114; TEMP 97.3; BMI 35.2
[2021-06-13] MEDS ORDERED: ACETAMINOPHEN INJECTION 100 ML IVPB ONE ×2 (09:00→09:57)
[2021-06-13 10:36] LABS: BASO % 1.1 % (0-2.0); EOS % 2.2 % (0-4.5); HEMATOCRIT 45.9 % (35.4-49); HEMOGLOBIN 15.5 GM/dL (11.7-16.9); LYMPH % 19.6 % (8-40); MCH 28.8 pg (25.7-33.7); MCHC 33.9 g/dl (32.0-35.9); MEAN CELL VOLUME 85.2 fl (80-96); MEAN PLT VOLUME 8.1 fl (7.5-11.1); MONO % 5.1 % (3.8-10.2); PLATELET COUNT 288 10^3/uL (134-434); RBC 5.38 M/mm3 (4.00-5.60); RDW 13.4 % (11.9-15.9); WHITE BLOOD COUNT 12.4 K/mm3 (4.0-10.0)
[2021-06-13 11:01] LABS: CALCIUM 8.8 mg/dL (8.5-10.1)
[2021-06-13 11:02] LABS: ALBUMIN 3.4 g/dl (3.4-5.0); BLOOD UREA NITROGEN 16.4 mg/dL (7-18)
[2021-06-13 11:05] LABS: CREATININE 1.2 mg/dL (0.55-1.3)
[2021-06-13 11:07] LABS: TOT PROT 7.7 g/dl (6.4-8.2)
== END 2021-06-13 14:13 | disposition home or self-care (01) ==
LOC: JER 07:38
PROC: 3E033GC Introduction of Other Therapeutic Substance into Peripheral Vein, Percutaneous Approach (ICD-10-PCS; principal; 2021-06-13)
DX: R06.02 Shortness of breath (principal); R05.9 Cough, unspecified; M79.10 Myalgia, unspecified site
CPT/HCPCS: 36415; 71045-TC-FY; 80053; 85025; 87040; 87804; 93005; 93010; 99285-25; C9803; J0131; U0003; U0005

== ENCOUNTER 2021-10-20 06:00 | Emergency (ER) | payer OTHER ==
[2021-10-20 06:16] VITALS: BP 155/86; PULSE 77; TEMP 98.9; BMI 41.1
[2021-10-20] MEDS ORDERED: SODIUM CHLORIDE 1,000 ML IV STA (06:23)
[2021-10-20] MEDS ORDERED: ACETAMINOPHEN 500 MG TABLET (FP) PO ONE (06:23)
[2021-10-20] MEDS ORDERED: ACETAMINOPHEN 325 MG TABLET (FP) ONE (08:04)
[2021-10-20 08:54] LABS: BASO % 0.6 % (0-2.0); EOS % 2.4 % (0-4.5); HEMATOCRIT 42.6 % (35.4-49); LYMPH % 16.3 % (8-40); MCH 28.6 pg (25.7-33.7); MCHC 32.9 g/dl (32.0-35.9); MEAN PLT VOLUME 8.6 fl (7.5-11.1); MONO % 5.8 % (3.8-10.2); NEUT % 74.9 % (42.8-82.8); PLATELET COUNT 245 10^3/uL (134-434); RDW 13.2 % (11.9-15.9); WHITE BLOOD COUNT 9.1 K/mm3 (4.0-10.0)
[2021-10-20 08:59] LABS: EPI CELLS 3 /uL (0-25.1); HYALINE CASTS 1 /uL (0-3.1); URINE APPEARANCE CLEAR; URINE BACTERIA 4 /uL (0-1359); URINE BILIRUBIN NEGATIVE (NEGATIVE); URINE COLOR YELLOW; URINE GLUCOSE (UA) NEGATIVE (NEGATIVE); URINE KETONE NEGATIVE (NEGATIVE); URINE LEUK ESTERASE NEGATIVE (NEGATIVE); URINE NITRITE NEGATIVE (NEGATIVE); URINE PROTEIN NEGATIVE (NEGATIVE); URINE RBC 10 /uL (0-23.9); URINE UROBILINOGEN 0.2 mg/dL (0.2-1.0); URINE WBC 6 /uL (0-25.8)
[2021-10-20 09:14] LABS: CALCIUM 9.2 mg/dL (8.5-10.1)
[2021-10-20 09:15] LABS: ALBUMIN 3.9 g/dl (3.4-5.0); BLOOD UREA NITROGEN 18.3 mg/dL (7-18)
[2021-10-20 09:18] LABS: CREATININE 1.1 mg/dL (0.55-1.3)
[2021-10-20 09:19] LABS: BILIRUBIN,TOTAL 0.4 mg/dL (0.2-1)
[2021-10-20 09:20] LABS: TOT PROT 7.4 g/dl (6.4-8.2)
[2021-10-20] MEDS ORDERED: KETOROLAC TROMETHAMINE 15 MG/ML VIAL IVPUSH ONE (10:12)
[2021-10-20] MEDS ORDERED: KETOROLAC TROMETHAMINE 15 MG/ML VIAL ONE (10:52)
== END 2021-10-20 11:30 | disposition home or self-care (01) ==
LOC: JER 06:00
PROC: 3E033GC Introduction of Other Therapeutic Substance into Peripheral Vein, Percutaneous Approach (ICD-10-PCS; principal; 2021-10-20)
DX: R10.9 Unspecified abdominal pain (principal)
CPT/HCPCS: 36415; 74176-TC; 80053; 81003; 85025; 87086; 96361; 96374; 99285-25

== ENCOUNTER 2022-12-11 15:42 | Inpatient (IN) | payer MEDICARE ==
[2022-12-11] MEDS ORDERED: KETOROLAC TROMETHAMINE 15 MG/ML VIAL IVPUSH ONE ×2 (16:55→22:51)
[2022-12-11] MEDS ORDERED: SODIUM CHLORIDE 1,000 ML IV STA (16:55)
[2022-12-11] MEDS ORDERED: ONDANSETRON 4 MG/2 ML VIAL IVPUSH ONE ×2 (16:56→17:36)
[2022-12-11] MEDS ORDERED: KETOROLAC TROMETHAMINE 15 MG/ML VIAL ONE ×2 (17:10→23:20)
[2022-12-11] MEDS ORDERED: ONDANSETRON 4 MG/2 ML VIAL ONE ×2 (17:11→17:50)
[2022-12-11] MEDS ORDERED: HYDROmorphone HCl 2 MG/ML VIAL IVPUSH ONE ×3 (17:35→22:56)
[2022-12-11] MEDS ORDERED: TAMSULOSIN HCL 0.4 MG CAP PO ONE (17:36)
[2022-12-11] MEDS ORDERED: TAMSULOSIN HCL 0.4 MG CAP ONE (17:50)
[2022-12-11] MEDS ORDERED: HYDROmorphone HCl 2 MG/ML VIAL ONE ×3 (17:50→23:20)
[2022-12-11 18:11] LABS: BASO % 0.6 % (0-2.0); EOS % 1.1 % (0-4.5); HEMATOCRIT 41.7 % (35.4-49); HEMOGLOBIN 14.2 GM/dL (11.7-16.9); LYMPH % 11.2 % (8-40); MCH 28.6 pg (25.7-33.7); MEAN CELL VOLUME 84.3 fl (80-96); MEAN PLT VOLUME 8.2 fl (7.5-11.1); MONO % 5.9 % (3.8-10.2); NEUT % 81.2 % (42.8-82.8); PLATELET COUNT 258 10^3/uL (134-434); RBC 4.94 M/mm3 (4.00-5.60); RDW 13.5 % (11.9-15.9); WHITE BLOOD COUNT 9.9 K/mm3 (4.0-10.0)
[2022-12-11 18:13] LABS: EPI CELLS 3 /uL (0-25.1); HYALINE CASTS 1 /uL (0-3.1); URINE APPEARANCE CLEAR; URINE BACTERIA 6 /uL (0-1359); URINE BILIRUBIN NEGATIVE (NEGATIVE); URINE COLOR YELLOW; URINE GLUCOSE (UA) 3+ (NEGATIVE); URINE KETONE NEGATIVE (NEGATIVE); URINE LEUK ESTERASE NEGATIVE (NEGATIVE); URINE NITRITE NEGATIVE (NEGATIVE); URINE PROTEIN TRACE (NEGATIVE); URINE RBC 35 /uL (0-23.9); URINE UROBILINOGEN 0.2 mg/dL (0.2-1.0); URINE WBC 19 /uL (0-25.8)
[2022-12-11 18:23] LABS: CHLORIDE 98 mmol/L (98-107); SODIUM 126 mmol/L (136-145)
[2022-12-11 18:24] LABS: CALCIUM 9.2 mg/dL (8.5-10.1)
[2022-12-11 18:25] LABS: ALBUMIN 3.4 g/dl (3.4-5.0); BLOOD UREA NITROGEN 17.7 mg/dL (7-18); CO2 28 mmol/L (21-32); GLUCOSE,RANDOM 219 mg/dL (74-106)
[2022-12-11 18:28] LABS: CREATININE 1.3 mg/dL (0.55-1.3); SGOT/AST 75 U/L (15-37)
[2022-12-11 18:30] LABS: BILIRUBIN,TOTAL 0.5 mg/dL (0.2-1); TOT PROT 7.6 g/dl (6.4-8.2)
[2022-12-11 18:31] LABS: ALK PHOS 93 U/L (45-117); ANION GAP -1 MMOL/L (8-16); SGPT/ALT 46 U/L (13-61)
[2022-12-11 20:52] LABS: CALCIUM 8.7 mg/dL (8.5-10.1)
[2022-12-11 20:56] LABS: CREATININE 1.2 mg/dL (0.55-1.3)
[2022-12-11] MEDS ORDERED: SODIUM CHLORIDE 1,000 ML IV SCH (23:00)
[2022-12-12] MEDS ORDERED: morphine CARPU-JECT 4 MG/1 ML DISP.SYRIN IVPUSH PRN (01:02)
[2022-12-12] MEDS ORDERED: ONDANSETRON 4 MG/2 ML VIAL IVPUSH PRN ×4 (01:03→15:06)
[2022-12-12] MEDS ORDERED: DEXTROSE 5%-0.45% SALINE 1,000 ML IV SCH (01:15)
[2022-12-12] MEDS ORDERED: MELATONIN 5 MG TABLETS PO ONE (01:41)
[2022-12-12] MEDS ORDERED: MELATONIN 5 MG TABLETS ONE (01:42)
[2022-12-12] MEDS ORDERED: morphine SULFATE 4 MG/ML VIAL ONE ×3 (03:25→10:10)
[2022-12-12] MEDS ORDERED: morphine SULFATE 4 MG/ML VIAL IVPUSH PRN (03:35)
[2022-12-12 06:42] LABS: BASO % 0.4 % (0-2.0); EOS % 2.1 % (0-4.5); HEMATOCRIT 35.9 % (35.4-49); HEMOGLOBIN 12.8 GM/dL (11.7-16.9); LYMPH % 20.2 % (8-40); MCHC 35.6 g/dl (32.0-35.9); MEAN CELL VOLUME 84.3 fl (80-96); MEAN PLT VOLUME 8.4 fl (7.5-11.1); MONO % 5.2 % (3.8-10.2); NEUT % 72.1 % (42.8-82.8); PLATELET COUNT 210 10^3/uL (134-434); RBC 4.26 M/mm3 (4.00-5.60); WHITE BLOOD COUNT 9.3 K/mm3 (4.0-10.0)
[2022-12-12 07:04] LABS: CALCIUM 8.9 mg/dL (8.5-10.1)
[2022-12-12 07:05] LABS: BLOOD UREA NITROGEN 15.1 mg/dL (7-18)
[2022-12-12 07:07] LABS: CREATININE 1.2 mg/dL (0.55-1.3)
[2022-12-12 07:08] LABS: BILIRUBIN,TOTAL 0.6 mg/dL (0.2-1); TOT PROT 6.5 g/dl (6.4-8.2)
[2022-12-12] MEDS: INSULIN SLIDING SCALE (NOVOLOG) 1 VIAL SQ SCH ×4 (07:08→22:00)
[2022-12-12] MEDS ORDERED: TAMSULOSIN HCL 0.4 MG CAP ONE (08:15)
[2022-12-12] MEDS ORDERED: METOPROLOL TARTRATE 50 MG TABLET (FP) ONE (08:15)
[2022-12-12] MEDS ORDERED: ENOXAPARIN NA (PORCINE) 40 MG/0.4 ML DISP.SYRIN SQ ONE (08:15)
[2022-12-12] MEDS ORDERED: TAMSULOSIN HCL 0.4 MG CAP PO SCH (08:30)
[2022-12-12] MEDS ORDERED: ENOXAPARIN NA (PORCINE) 40 MG/0.4 ML DISP.SYRIN SQ SCH (10:00)
[2022-12-12] MEDS ORDERED: METOPROLOL TARTRATE 50 MG TABLET (FP) PO SCH (10:00)
[2022-12-12] MEDS ORDERED: ALBUTEROL SO4 HFA INHALER IH ONE (13:40)
[2022-12-12] MEDS ORDERED: MIDAZOLAM HCL 2 MG/2 ML SINGLE DOSE VIAL ONE ×2 (13:41→13:51)
[2022-12-12] MEDS ORDERED: ONDANSETRON 4 MG/2 ML VIAL ONE (13:42)
[2022-12-12] MEDS ORDERED: DEXAMETHASONE SOD PHOSPHATE 4 MG/1 ML VIAL ONE (13:42)
[2022-12-12] MEDS ORDERED: LIDOCAINE HCL/PF 2% SDV 5ML VIAL ONE (13:42)
[2022-12-12] MEDS ORDERED: PROPOFOL 40 ML ONE (13:43)
[2022-12-12] MEDS ORDERED: PROPOFOL 60 ML ONE (13:45)
[2022-12-12] MEDS ORDERED: PROPOFOL 20 ML ONE (13:46)
[2022-12-12] MEDS ORDERED: ceFAZolin SODIUM 1 GM VIAL IVPB ONE (13:58)
[2022-12-12] MEDS ORDERED: ceFAZolin SODIUM 1 GM VIAL ONE (13:59)
[2022-12-12] MEDS ORDERED: KETAMINE HCL 500 MG/10 ML VIAL ONE (14:00)
[2022-12-12] MEDS ORDERED: FENTANYL CITRATE/PF 50 MCG/ML VIAL IVPUSH PRN ×4 (14:18→15:06)
[2022-12-12] MEDS ORDERED: ACETAMINOPHEN 1000 MG/100 ML BAG IVPB ONE ×2 (14:19→15:06)
[2022-12-12] MEDS ORDERED: LACTATED RINGERS SOLUTION 1,000 ML IV SCH ×2 (14:30→15:06)
[2022-12-12] MEDS: DEXTROSE 5%-0.45% SALINE 1,000 ML IV SCH ×2 (15:25→22:00)
[2022-12-12 18:16] VITALS: RESP 18; BMI 34.9
[2022-12-12] MEDS: morphine SULFATE 4 MG/ML VIAL IVPUSH PRN (18:39)
[2022-12-12] MEDS: METOPROLOL TARTRATE 50 MG TABLET (FP) PO SCH (21:56)
[2022-12-13] MEDS: morphine SULFATE 4 MG/ML VIAL IVPUSH PRN ×2 (03:08→13:47)
[2022-12-13] MEDS: INSULIN SLIDING SCALE (NOVOLOG) 1 VIAL SQ SCH ×3 (07:23→17:33)
[2022-12-13] MEDS ORDERED: TAMSULOSIN HCL 0.4 MG CAP PO SCH (08:30)
[2022-12-13] MEDS ORDERED: ENOXAPARIN NA (PORCINE) 40 MG/0.4 ML DISP.SYRIN SQ SCH (10:00)
[2022-12-13] MEDS: METOPROLOL TARTRATE 50 MG TABLET (FP) PO SCH (10:37)
[2022-12-13 13:43] VITALS: BP 104/48; PULSE 75; TEMP 98.1
== END 2022-12-13 19:00 | disposition home or self-care (01) | DRG 661 ==
LOC: JER 15:42 → JERBED 23:35 → J7W 12-12 17:53
PROVIDERS: ADMIT Internal Medicine; ATTEND Internal Medicine
PROC: BT1FZZZ Fluoroscopy of Left Kidney, Ureter and Bladder (ICD-10-PCS; 2022-12-12)
PROC: 0TJB8ZZ Inspection of Bladder, Via Natural or Artificial Opening Endoscopic (ICD-10-PCS; principal; 2022-12-12 14:00)
PROC: 0T778DZ Dilation of Left Ureter with Intraluminal Device, Via Natural or Artificial Opening Endoscopic (ICD-10-PCS; 2022-12-12 14:00)
DX: N13.2 Hydronephrosis with renal and ureteral calculous obstruction (principal); E78.5 Hyperlipidemia, unspecified; N40.0 Benign prostatic hyperplasia without lower urinary tract symptoms; J44.9 Chronic obstructive pulmonary disease, unspecified; K76.0 Fatty (change of) liver, not elsewhere classified; M25.512 Pain in left shoulder; M77.9 Enthesopathy, unspecified; I10 Essential (primary) hypertension; E11.9 Type 2 diabetes mellitus without complications
CPT/HCPCS: 36415; 74176-TC; 76000-TC-FY; 80048; 80053; 81003; 82962; 85025; 87086; 93005; 93010; 94760; 99284-25; 99285-25; C2617; C9803-CS; U0003; U0005

== ENCOUNTER 2023-09-14 05:45 | Emergency (ER) | payer MEDICARE, OTHER ==
[2023-09-14 05:52] VITALS: BP 123/67; PULSE 89; RESP 18; TEMP 98.9; BMI 30.9
[2023-09-14] MEDS ORDERED: ACETAMINOPHEN 1000 MG/100 ML BAG IVPB ONE (07:47)
[2023-09-14] MEDS ORDERED: ACETAMINOPHEN INJECTION 100 ML IVPB ONE (07:53)
[2023-09-14] MEDS ORDERED: ALBUTEROL SO4 2.5/IPRATROPIUM 0.5 INH SOL 3 ML VIAL.NEB. NEB ONE ×3 (08:04→10:18)
[2023-09-14 08:22] LABS: BASO % 0.5 % (0-2.0); EOS % 0.3 % (0-4.5); HEMATOCRIT 42.7 % (35.4-49); HEMOGLOBIN 14.2 GM/dL (11.7-16.9); LYMPH % 10.2 % (8-40); MCH 28.3 pg (25.7-33.7); MCHC 33.2 g/dl (32.0-35.9); MEAN CELL VOLUME 85.2 fl (80-96); MEAN PLT VOLUME 7.9 fl (7.5-11.1); MONO % 6.1 % (3.8-10.2); NEUT % 82.9 % (42.8-82.8); PLATELET COUNT 282 10^3/uL (134-434); RBC 5.02 M/mm3 (4.00-5.60); RDW 14.5 % (11.9-15.9)
[2023-09-14 08:29] LABS: INR 1.07 (0.83-1.09); PROTHROMBIN TIME (PATIENT) 12.4 SEC (9.7-13.0)
[2023-09-14 08:32] LABS: ACTIVATED PTT 26.2 SECONDS (25.2-36.5)
[2023-09-14 08:35] LABS: PH,URINE 5.5 (5.0-8.0); URINE APPEARANCE CLEAR; URINE BILIRUBIN NEGATIVE (NEGATIVE); URINE COLOR YELLOW; URINE GLUCOSE (UA) 2+ (NEGATIVE); URINE KETONE NEGATIVE (NEGATIVE); URINE LEUK ESTERASE NEGATIVE (NEGATIVE); URINE NITRITE NEGATIVE (NEGATIVE); URINE PROTEIN NEGATIVE (NEGATIVE); URINE UROBILINOGEN 0.2 mg/dL (0.2-1.0)
[2023-09-14 08:45] LABS: POTASSIUM 4.4 mmol/L (3.5-5.1)
[2023-09-14 08:47] LABS: CALCIUM 9.8 mg/dL (8.5-10.1)
[2023-09-14 08:48] LABS: ALBUMIN 3.7 g/dl (3.4-5.0); BLOOD UREA NITROGEN 24.5 mg/dL (7-18)
[2023-09-14 08:50] LABS: CREATININE 1.3 mg/dL (0.55-1.3)
[2023-09-14 08:52] LABS: BILIRUBIN,TOTAL 0.5 mg/dL (0.2-1); TOT PROT 7.9 g/dl (6.4-8.2)
[2023-09-14] MEDS ORDERED: METHOCARBAMOL 500 MG TABLET PO ONE (09:57)
[2023-09-14] MEDS: ALBUTEROL SO4 2.5/IPRATROPIUM 0.5 INH SOL 3 ML VIAL.NEB. NEB SCH ×2 (11:00→11:15)
== END 2023-09-14 13:16 | disposition home or self-care (01) ==
LOC: JER 05:45
PROC: 3E033NZ Introduction of Analgesics, Hypnotics, Sedatives into Peripheral Vein, Percutaneous Approach (ICD-10-PCS; principal; 2023-09-14)
PROC: 3E0F7GC Introduction of Other Therapeutic Substance into Respiratory Tract, Via Natural or Artificial Opening (ICD-10-PCS; 2023-09-14)
PROC: 3E0F7GC Introduction of Other Therapeutic Substance into Respiratory Tract, Via Natural or Artificial Opening (ICD-10-PCS; 2023-09-14)
DX: R06.02 Shortness of breath (principal); R05.9 Cough, unspecified; R10.9 Unspecified abdominal pain; J44.9 Chronic obstructive pulmonary disease, unspecified; Z20.822 Contact with and (suspected) exposure to COVID-19
CPT/HCPCS: 0241U-QW; 36415; 71046-TC-FY; 74177-TC; 80053; 81003; 83690; 84484; 85025; 85610; 85730; 87086; 87186; 93005; 93010; 94640; 96374; 99285-25; Q9967

== ENCOUNTER 2023-09-21 09:13 | Emergency (ER) | payer MEDICARE ==
[2023-09-21 09:22] VITALS: TEMP 97.8; BMI 32.5
[2023-09-21] MEDS ORDERED: ACETAMINOPHEN 1000 MG/100 ML BAG IVPB ONE (09:59)
[2023-09-21] MEDS ORDERED: ACETAMINOPHEN INJECTION 100 ML IVPB ONE (10:16)
[2023-09-21] MEDS ORDERED: SODIUM CHLORIDE 0.9% 500 ML INFUS.BAG IV ONE (10:24)
[2023-09-21 10:26] LABS: BASO % 0.3 % (0-2.0); EOS % 0.1 % (0-4.5); HEMATOCRIT 42.2 % (35.4-49); HEMOGLOBIN 14.2 GM/dL (11.7-16.9); INR 1.15 (0.83-1.09); LYMPH % 7.9 % (8-40); MCH 28.6 pg (25.7-33.7); MCHC 33.7 g/dl (32.0-35.9); MEAN CELL VOLUME 84.8 fl (80-96); MEAN PLT VOLUME 8.3 fl (7.5-11.1); MONO % 4.4 % (3.8-10.2); NEUT % 87.3 % (42.8-82.8); PLATELET COUNT 281 10^3/uL (134-434); PROTHROMBIN TIME (PATIENT) 13.3 SEC (9.7-13.0); RBC 4.98 M/mm3 (4.00-5.60); WHITE BLOOD COUNT 15.7 K/mm3 (4.0-10.0)
[2023-09-21 10:29] LABS: ACTIVATED PTT 27.7 SECONDS (25.2-36.5)
[2023-09-21 10:33] LABS: VENOUS BASE EXCESS -1.1 mmol/L (-2-2); VENOUS O2 SATURATION 38.6 % (70-80); VENOUS PCO2 52.5 mmHg (38-52); VENOUS PH 7.312 (7.310-7.410)
[2023-09-21 10:41] LABS: POTASSIUM 4.8 mmol/L (3.5-5.1)
[2023-09-21 10:44] LABS: CALCIUM 9.7 mg/dL (8.5-10.1)
[2023-09-21 10:45] LABS: ALBUMIN 3.7 g/dl (3.4-5.0); BLOOD UREA NITROGEN 16.6 mg/dL (7-18); MAGNESIUM 1.5 mg/dL (1.8-2.4)
[2023-09-21 10:47] LABS: CREATININE 1.4 mg/dL (0.55-1.3)
[2023-09-21 10:49] LABS: BILIRUBIN,TOTAL 0.4 mg/dL (0.2-1); TOT PROT 7.8 g/dl (6.4-8.2)
[2023-09-21 12:51] LABS: URINE APPEARANCE CLEAR; URINE BILIRUBIN NEGATIVE (NEGATIVE); URINE COLOR YELLOW; URINE GLUCOSE (UA) 3+ (NEGATIVE); URINE KETONE NEGATIVE (NEGATIVE); URINE LEUK ESTERASE NEGATIVE (NEGATIVE); URINE NITRITE NEGATIVE (NEGATIVE); URINE PROTEIN NEGATIVE (NEGATIVE); URINE UROBILINOGEN 0.2 mg/dL (0.2-1.0)
[2023-09-21] MEDS ORDERED: KETOROLAC TROMETHAMINE 30 MG/1 ML VIAL IM ONE (13:06)
[2023-09-21] MEDS ORDERED: LIDOCAINE 4% PATCH TP ONE ×2 (13:06→13:23)
[2023-09-21] MEDS ORDERED: AZITHROMYCIN IVPB 500 MG in DEXTROSE 5%-WATER - 250 ML IVPB ONE (13:17)
[2023-09-21] MEDS ORDERED: methylPREDNISolone NA SUCC 125 MG/2 ML VIAL IVPUSH ONE (13:17)
[2023-09-21] MEDS ORDERED: methylPREDNISolone NA SUCC 125 MG/2 ML VIAL ONE (13:24)
[2023-09-21] MEDS ORDERED: KETOROLAC TROMETHAMINE 30 MG/1 ML VIAL ONE (13:24)
[2023-09-21] MEDS ORDERED: AZITHROMYCIN IVPB 500 MG/250 ML BAG IVPB ONE (13:40)
[2023-09-21 14:25] VITALS: BP 124/72; PULSE 85; RESP 14
[2023-09-21] MEDS ORDERED: LIDOCAINE PATCH REMOVAL MC ONE (22:00)
== END 2023-09-21 15:14 | disposition home or self-care (01) ==
LOC: JER 09:13
PROC: 3E033GC Introduction of Other Therapeutic Substance into Peripheral Vein, Percutaneous Approach (ICD-10-PCS; principal; 2023-09-21)
PROC: 3E033NZ Introduction of Analgesics, Hypnotics, Sedatives into Peripheral Vein, Percutaneous Approach (ICD-10-PCS; 2023-09-21)
PROC: 3E033GC Introduction of Other Therapeutic Substance into Peripheral Vein, Percutaneous Approach (ICD-10-PCS; 2023-09-21)
PROC: 3E0233Z Introduction of Anti-inflammatory into Muscle, Percutaneous Approach (ICD-10-PCS; 2023-09-21)
DX: R06.02 Shortness of breath (principal); R10.9 Unspecified abdominal pain; R05.9 Cough, unspecified; R00.0 Tachycardia, unspecified; Z20.822 Contact with and (suspected) exposure to COVID-19
CPT/HCPCS: 36415; 71045-TC-FY; 74176-TC; 80053; 81003; 82803; 83735; 84484; 85025; 85610; 85730; 87086; 87635; 99285-25